=== PATIENT | male | born 1940 | race Caucasian/White ===

== ENCOUNTER 2019-11-26 12:00 | Outpatient (CLI) | payer MEDICARE, OTHER ==
[2019-11-26 14:15] LABS: BILIRUBIN,URINE NEGATIVE (NEGATIVE); GLUCOSE, URINE (UA) NEGATIVE (NEGATIVE); KETONES,URINE (UA) NEGATIVE (NEGATIVE); LEUKOCYTE ESTERASE, URINE SMALL (NEGATIVE); NITRITE,URINE NEGATIVE (NEGATIVE); OCCULT BLOOD,URINE LARGE (NEGATIVE); PROTEIN,URINE TRACE mg/dL (NEGATIVE); UROBILINOGEN,URINE 0.2 (NORMAL) E.U./dL (NORMAL)
[2019-11-26 14:18] LABS: CLARITY,URINE HAZY (CLEAR)
[2019-11-26 14:29] LABS: AMORPHOUS SEDIMENT,UR Moderate /LPF; BACTERIA,URINE Few /HPF (None Seen); SQUAMOUS EPITHELIAL CELL,UR NONE SEEN (<= Few)
== END 2019-11-26 23:59 | disposition home or self-care (01) ==
LOC: LAB.R 12:00
DX: R30.0 Dysuria (principal)
CPT/HCPCS: 81001; 81003; 87077; 87086; 87181

== ENCOUNTER 2019-12-14 08:00 | Outpatient (CLI) | payer MEDICARE ==
[2019-12-14 20:39] LABS: BASOPHILS % (AUTO) 0.2 %; EOSINOPHILS # (AUTO) 0.1 10^3/uL (0.0-0.7); EOSINOPHILS % (AUTO) 0.7 %; HGB - HEMOGLOBIN 12.3 g/dL (14.0-18.0); LYMPHOCYTES % (AUTO) 19.7 %; MEAN CORPUSCULAR HEMOGLOBIN 31.5 pg (27.0-31.0); MEAN CORPUSCULAR HGB CONC 34.4 g/dL (32.0-36.0); MEAN CORPUSCULAR VOLUME 91.6 fL (80.0-94.0); MEAN PLATELET VOLUME 11.5 fL (7.4-11.4); NEUTROPHILS % (AUTO) 68.9 %; PLT - PLATELET COUNT 248 10^3/uL (130-450); RED BLOOD COUNT 3.91 10^6/uL (4.70-6.10); RED CELL DISTRIBUTION WIDTH 13.3 % (12.0-15.0); WHITE BLOOD COUNT 10.2 x10^3/uL (4.8-10.8)
[2019-12-14 20:50] LABS: CALCIUM 8.5 mg/dL (8.5-10.3)
== END 2019-12-14 23:59 | disposition home or self-care (01) ==
LOC: LAB.R 08:00
PROVIDERS: ATTEND Family Medicine
DX: U07.1 COVID-19 (principal); F03.90 Unspecified dementia, unspecified severity, without behavioral disturbance, psychotic disturbance, mood disturbance, and anxiety
CPT/HCPCS: 80048; 85025

== ENCOUNTER 2019-12-24 14:55 | Outpatient (CLI) | payer MEDICARE ==
--- NOTE | 2019-12-25 00:39 | XRAY Report ---
Reason: Displaced fracture of epiphysis (upper) of right femur, subsequent encounter for Procedure Date: 12/24/2019 Accession Number: [id number] / [id number] Procedure: XR - Hip w/Pelvis 2-3V RT CPT Code: Final Report FULL RESULT: EXAM: RIGHT HIP RADIOGRAPHY EXAM DATE: 12/24/2019 03:14 PM. CLINICAL HISTORY: Right femoral fracture COMPARISON: None. TECHNIQUE: 2 views. FINDINGS: The right intertrochanteric femoral fracture is internally fixated by an intramedullary nail and lateral plate with multiple proximal femoral diaphyseal screws. The fracture is mildly impacted with foreshortening. The hips are seated. Mild bilateral hip joint space narrowing with marginal osteophyte are seen. The bones are osteopenic. The remaining bones of the pelvis are intact. A large amount of retained stool is seen in the imaged portions of the colon. There is no focal soft tissue swelling. IMPRESSION: Internally fixated right intertrochanteric femoral fracture. RADIA
== END 2019-12-24 14:56 | disposition home or self-care (01) ==
LOC: DI 14:55
PROVIDERS: ATTEND Family Medicine
DX: S72.141D Displaced intertrochanteric fracture of right femur, subsequent encounter for closed fracture with routine healing (principal)

== ENCOUNTER 2020-01-04 08:00 | Outpatient (CLI) | payer MEDICARE ==
[2020-01-04 18:36] LABS: CALCIUM 8.4 mg/dL (8.5-10.3); CREATININE 0.9 mg/dL (0.6-1.2)
== END 2020-01-04 23:59 | disposition home or self-care (01) ==
LOC: LAB.R 08:00
DX: E87.6 Hypokalemia (principal)
CPT/HCPCS: 80048

== ENCOUNTER 2020-04-11 17:42 | Emergency (ER) | payer MEDICARE ==
[2020-04-11] MEDS ORDERED: LIDOCAINE-EPINEPH-TETRACAINE 3 ML SYRINGE TOP STA (18:54)
--- NOTE | 2020-04-11 18:55 | ED Physician Documentation ---
PD HPI HEAD INJURY - Stated complaint Stated Complaint: GLF/EYE LAC - Chief complaint Chief Complaint: Laceration - History obtained from History obtained from: Patient - History of Present Illness Mechanism of head injury: Fell Where head injury occurred: Home Pain level max: 0 Pain level now: 0 Associated symptoms: AMS (Dementia, no change from baseline) Symptoms worsen with: Palpation Contributing factors: No: Anticoagulated, Intoxicated Recently seen: Not recently seen - Additional information Additional information: Patient lives at home place, has dementia. He fell today. Unwitnessed fall. Found to be bleeding from the right periorbital area. Unknown loss of consciousness. Not on blood thinners. Placed in a cervical collar by EMS and brought in for evaluation. No other apparent injuries. Review of Systems Unable to obtain: Dementia PD PAST MEDICAL HISTORY - Past Medical History Past Medical History: Yes Neuro: Dementia - Past Surgical History Past Surgical History: No - Allergies Allergies/Adverse Reactions: Allergies Allergy/AdvReac Type Severity Reaction Status Date / Time No Known Drug Allergies Allergy Verified 04/11/20 19:12 - Family History Family history: reports: Non contributory PD ED PE NORMAL - Vitals Vital signs reviewed: Yes - General General: No acute distress, Other (alert) - HEENT HEENT: PERRL, EOMI, Moist mucous membranes, Other (laceration R eyebrow, no scalp hematomas) - Neck Neck: Supple, no meningeal sign, No bony TTP - Cardiac Cardiac: RRR, Strong equal pulses - Respiratory Respiratory: No respiratory distress, Clear bilaterally - Abdomen Abdomen: Soft, Non tender, Non distended - Back Back: No spinal TTP - Derm Derm: Warm and dry - Extremities Extremities: No deformity, No tenderness to palpate, Normal ROM s pain - Neuro Neuro: Other (alert, pleasant) - Psych Psych: Normal mood, Normal affect Results - Vitals Vitals: Vital Signs - 24 hr 04/11/20 04/11/20 04/11/20 17:42 19:52 21:00 Temperature 36.4 C L 36.7 C Heart Rate 81 75 75 Respiratory 16 16 14 Rate Blood Pressure 138/77 H 109/90 H 104/66 O2 Saturation 100 100 98 Oxygen O2 Source Room air - Rads (name of study) head CT Radiology: Prelim report reviewed, EMP read contemporaneously, See rad report (no acute findings) c-spine cT Radiology: Prelim report reviewed, EMP read contemporaneously, See rad report (no acute findings) Procedures - Laceration (location) R eyebrow Length in cm: 2 Wound type: Linear, Superficial, Clean Neurovascular status: Sensory intact, Motor intact, Vascular intact Anesthesia: LET Wound Preparation: Irrigated copiously NS Skin layer closure: Dermabond, Steri strips Other: Patient tolerated well, No complications, Neurovascular intact, Dressing applied, Tetanus UTD Complexity: Simple PD MEDICAL DECISION MAKING - ED course Complexity details: reviewed results, considered differential, d/w patient ED course: 80-year-old male with a fall today. Laceration repaired with Steri-Strips and Dermabond. Patient tolerated well. No acute findings on head CT or cervical spine CT. We will have him follow-up with his doctor for further care. This document was made in part using voice recognition software. While efforts are made to proofread this document, sound alike and grammatical errors may occur. Departure - Departure Disposition: 01 Home, Self Care Clinical Impression: Facial laceration Qualifiers: Encounter type: initial encounter Qualified Code(s): S01.81XA - Laceration without foreign body of other part of head, initial encounter Head injury Qualifiers: Encounter type: initial encounter Qualified Code(s): S09.90XA - Unspecified injury of head, initial encounter Condition: Good Instructions: ED Laceration Facial Sutr Tape Follow-Up: Cherelle Roth MD [Primary Care Provider] - Within 1 week Comments: Return if he worsens. Keep the wound covered. The Steri-Strips and Dermabond should fall off on their own after about a week. His CT scan of the head and neck do not show any acute abnormalities tonight. Discharge Date/Time: 04/11/20 21:06
--- NOTE | 2020-04-11 20:16 | CT Report ---
PROCEDURE: HEAD WO INDICATIONS: fall, head injury TECHNIQUE: Noncontrast 4.5 mm thick angled axial sections acquired from the foramen magnum to the vertex. For r adiation dose reduction, the following was used: automated exposure control, adjustment of mA and/or kV according to patient size. COMPARISON: None. FINDINGS: Image quality: Excellent. CSF spaces: Basal cisterns are patent. No extra-axial fluid collections. Ventricles and sulci are m ildly enlarged, compatible with diffuse cerebral and cerebellar volume loss. Brain: No midline shift. No intracranial masses or hemorrhage. Scattered hypodensities in the subco rtical and periventricular white matter are compatible with mild chronic microvascular ischemic mooney es. Skull and face: Calvarium and visualized facial bones are intact, without suspicious lesions. Sinuses: Visualized sinuses and mastoids are clear. IMPRESSION: No acute intracranial hemorrhage or mass effect. No skull fracture is identified. Mild chronic senescent changes including mild chronic microvascular ischemic changes and mild diffuse cerebral atrophy. Reviewed by: Terrell Brown MD on 04/11/2020 8:15 PM PDT Approved by: Terrell Brown MD on 04/11/2020 8:15 PM PDT Station ID: [id number]
--- NOTE | 2020-04-11 20:34 | CT Report ---
PROCEDURE: CERVICAL SPINE WO INDICATIONS: fall, neck injury TECHNIQUE: Noncontrast 3 mm thick sections acquired from the skull base to the T4 level. Sagittal and coronal r eformats were then constructed. For radiation dose reduction, the following was used: automated exp osure control, adjustment of mA and/or kV according to patient size. COMPARISON: None. FINDINGS: Image quality: Images are degraded by patient motion on multiple sequences. Repeat sequences were obt ained.. Bones: No acute osseous fracture is identified. Multilevel degenerative disc disease and facet hyper trophy are seen in the cervical spine. There is mild grade 1 retrolisthesis of C3 on C4 related to de generative disc disease. Cervical alignment is otherwise maintained. Multilevel neuroforaminal narrow ing is seen that is most severe at the C3-4 level on the right. Moderate neural foraminal narrowing i s also seen at the C3-4 level left. No high-grade narrowing of the bony spinal canal is identified. T here is mild spinal canal narrowing at the C3-4 disc space level. Soft tissues: Prevertebral soft tissues are normal in thickness. No paravertebral hematomas. No ap ical pneumothoraces. Atherosclerotic calcifications are seen in the aorta. IMPRESSION: No acute cervical spine fracture is identified. There is no high-grade narrowing of the central spina l canal. Multilevel degenerative disc disease and facet hypertrophy are seen, which are worst at the C3-4 leve l, where there is mild retrolisthesis of C3 on C4 resulting in mild spinal canal stenosis and severe right and moderate left neural foraminal narrowing. Reviewed by: Terrell Brown MD on 04/11/2020 8:32 PM PDT Approved by: Terrell Brown MD on 04/11/2020 8:32 PM PDT Station ID: [id number]
[2020-04-11 21:06] VITALS: BP 104/66
== END 2020-04-11 21:06 | disposition home or self-care (01) ==
LOC: EDUNIT# → ED 17:42
DX: S01.111A Laceration without foreign body of right eyelid and periocular area, initial encounter (principal); S09.90XA Unspecified injury of head, initial encounter; W18.30XA Fall on same level, unspecified, initial encounter; Y92.129 Unspecified place in nursing home as the place of occurrence of the external cause; M50.31 Other cervical disc degeneration, high cervical region; M48.02 Spinal stenosis, cervical region; F03.90 Unspecified dementia, unspecified severity, without behavioral disturbance, psychotic disturbance, mood disturbance, and anxiety
CPT/HCPCS: 12011; 70450; 72125; 99281; 99284

== ENCOUNTER 2020-11-23 06:49 | Outpatient (CLI) | payer MEDICARE | END 2020-11-23 06:50 | disposition critical access hospital (66) | LOC: EMS 06:49 | PROVIDERS: ATTEND Emergency Medicine | DX: R41.82 Altered mental status, unspecified (principal); R06.82 Tachypnea, not elsewhere classified | CPT/HCPCS: A0425; A0427 ==

== ENCOUNTER 2020-11-23 07:05 | Inpatient (IN) | payer MEDICARE ==
[2020-11-23] MEDS ORDERED: MEROPENEM 1 GM in SODIUM CHLORIDE 0.9% MINIBAG 100 ML IV STA ×2 (07:19→07:22)
[2020-11-23] MEDS ORDERED: ACETAMINOPHEN 650 MG SUPP PR STA (07:25)
[2020-11-23] MEDS ORDERED: LACTATED RINGERS 2,200 ML IV STA (07:25)
[2020-11-23 07:33] LABS: BASOPHILS % (AUTO) 0.2 %; EOSINOPHILS # (AUTO) 0.1 10^3/uL (0.0-0.7); EOSINOPHILS % (AUTO) 0.5 %; HCT - HEMATOCRIT 39.5 % (42.0-52.0); HGB - HEMOGLOBIN 13.2 g/dL (14.0-18.0); LYMPHOCYTES # (AUTO) 0.6 10^3/uL (1.5-3.5); LYMPHOCYTES % (AUTO) 3.6 %; MEAN CORPUSCULAR HEMOGLOBIN 31.7 pg (27.0-31.0); MEAN CORPUSCULAR HGB CONC 33.4 g/dL (32.0-36.0); MEAN CORPUSCULAR VOLUME 94.7 fL (80.0-94.0); MEAN PLATELET VOLUME 9.8 fL (7.4-11.4); MONOCYTES # (AUTO) 0.5 10^3/uL (0.0-1.0); NEUTROPHILS # (AUTO) 14.9 10^3/uL (1.5-6.6); NEUTROPHILS % (AUTO) 91.6 %; PLT - PLATELET COUNT 186 10^3/uL (130-450); RED BLOOD COUNT 4.17 10^6/uL (4.70-6.10); RED CELL DISTRIBUTION WIDTH 13.1 % (12.0-15.0); WHITE BLOOD COUNT 16.2 x10^3/uL (4.8-10.8)
[2020-11-23 07:40] LABS: BILIRUBIN,URINE NEGATIVE (NEGATIVE); GLUCOSE, URINE (UA) NEGATIVE (NEGATIVE); KETONES,URINE (UA) TRACE mg/dL (NEGATIVE); LEUKOCYTE ESTERASE, URINE LARGE (NEGATIVE); NITRITE,URINE NEGATIVE (NEGATIVE); OCCULT BLOOD,URINE LARGE (NEGATIVE); PH,URINE 8.5 PH (5.0-7.5); PROTEIN,URINE 100 mg/dL (NEGATIVE); UROBILINOGEN,URINE 0.2 (NORMAL) E.U./dL (NORMAL)
[2020-11-23 07:41] LABS: CLARITY,URINE CLOUDY (CLEAR)
[2020-11-23 07:45] LABS: ALBUMIN 3.1 g/dL (3.2-5.5); CALCIUM 8.4 mg/dL (8.5-10.3); CREATININE 4.2 mg/dL (0.6-1.2); POTASSIUM 4.2 mmol/L (3.5-5.0); TOTAL PROTEIN 6.2 g/dL (6.7-8.2); VBG PCO2 30.6 mmHg (41-51); VBG PH 7.334 (7.31-7.41); VBG PO2 23.4 mmHg (25-47)
--- NOTE | 2020-11-23 07:45 | XRAY Report ---
PROCEDURE: Chest 1 View X-Ray INDICATIONS: sepsis TECHNIQUE: One view of the chest was acquired. COMPARISON: None FINDINGS: Surgical changes and devices: None. Lungs and pleura: On the semiupright images, no large pneumothorax or large pleural effusions can be seen. No focal infiltrates are seen. Mediastinum: The aorta is prominent and tortuous. The cardiac contours are within normal limits. Bones and chest wall: Age-appropriate degenerative changes are seen. No suspicious bony lesions. Overlying soft tissues appear unremarkable. IMPRESSION: No focal infiltrates are seen. Reviewed by: Tyler Harman MD on 11/23/2020 6:44 AM JOMAR Approved by: Tyler Harman MD on 11/23/2020 6:44 AM JOMAR Station ID: [id number]
[2020-11-23 07:46] LABS: VBG BASE EXCESS -8.5 mmol/L (-2 - +2); VBG OXYGEN SATURATION 38.2 % (60-80)
--- NOTE | 2020-11-23 07:47 | ED Physician Documentation ---
History of Present Illness - Stated complaint Stated Complaint: AMS - Chief complaint Chief Complaint: Fever - History obtained from History obtained from: EMS - Additonal information Additional information: 80yM with pmh baseline severe dementia, BPH with chronic indwelling sims, p/w unresponsiveness around 4am on morning checks. LSN was last night. On ems arrival he was tachycardic, hypotensive, normal blood glucose. 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 patient initially responsive only to pain, moaning, eyes closed. In the ED he is responsive to verbal, eye opening spontaneously, moaning. Further history limited by patient acuity. Review of Systems Unable to obtain: Dementia, Other (ROS limited by patient acuity) PD PAST MEDICAL HISTORY - Past Medical History Neuro: Dementia - Past Surgical History Past Surgical History: No - Present Medications Home Medications: Ambulatory Orders Medication Instructions Recorded Confirmed Acetaminophen [Tylenol] 650 mg PO Q6H PRN 11/23/20 11/23/20 Bisacodyl Supp [Dulcolax Supp] 1 supp TX DAILY PRN 11/23/20 11/23/20 Cholecalciferol [Vitamin D3] 1 tab PO DAILY 11/23/20 11/23/20 Loperamide HCl [Imodium A-D] 4 mg PO PRN PRN 11/23/20 11/23/20 Mag Hydrox/Aluminum Hyd/Simeth 30 ml PO Q4HR PRN 11/23/20 11/23/20 [Antacid Anti-Gas Liquid] Magnesium Hydroxide [Milk of 30 ml PO DAILY PRN 11/23/20 11/23/20 Magnesia] Propranolol ER [Inderal LA] 1 tab PO DAILY 11/23/20 11/23/20 - Allergies Allergies/Adverse Reactions: Allergies Allergy/AdvReac Type Severity Reaction Status Date / Time No Known Drug Allergies Allergy Verified 11/23/20 07:23 PD ED PE NORMAL - Vitals Vital signs reviewed: Yes - General General: Other (alert, eye opening spontaneously, visibly tachypneic) - HEENT HEENT: Atraumatic, PERRL, EOMI, Other (dry MM) - Neck Neck: Supple, no meningeal sign - Cardiac Cardiac: Other (tachycardic rate, reg rhythm) - Respiratory Respiratory: No respiratory distress, Clear bilaterally - Abdomen Abdomen: Other (discomfort to suprapubic palpation with distended palpable bladder. otherwise ntnd) - Male Male : Other (sims in place) - Derm Derm: Other (flushed) - Extremities Extremities: No deformity - Neuro Eye Opening: Spontaneous Motor: Localizes to Pain Verbal: Inappropriate GCS Score: 12 - Psych Psych: Other (confused, disoriented) Results - Vitals Vitals: Vital Signs - 24 hr 11/23/20 11/23/20 11/23/20 07:23 07:33 07:48 Temperature 38.5 C H 38.5 C H 38 C H Heart Rate 103 H 94 94 Respiratory 36 H 38 H 42 H Rate Blood Pressure 87/57 L 74/51 L 84/58 L O2 Saturation 96 95 97 11/23/20 11/23/20 11/23/20 08:13 08:34 08:42 Temperature 37.6 C 37.7 C 37.7 C Heart Rate 100 91 92 Respiratory 31 H 32 H 28 H Rate Blood Pressure 85/53 L 76/46 L 77/53 L O2 Saturation 96 96 97 11/23/20 11/23/20 11/23/20 08:55 09:02 09:20 Temperature 37.7 C 37.7 C 37.6 C Heart Rate 93 93 89 Respiratory 28 H 29 H 32 H Rate Blood Pressure 68/48 L 69/47 L 76/50 L O2 Saturation 94 95 98 Oxygen O2 Source Non-rebreather mask - EKG (time done) 0716 Rate: Rate (enter#) (101) Rhythm: Sinus tachycardia Intervals: Normal TX Ischemia: ST elevation c/w repol (lateral leads) - Labs Labs: Laboratory Tests 11/23/20 11/23/20 11/23/20 07:19 07:19 07:19 WBC 16.2 H RBC 4.17 L Hgb 13.2 L Hct 39.5 L MCV 94.7 H MCH 31.7 H MCHC 33.4 RDW 13.1 Plt Count 186 MPV 9.8 Neut # (Auto) 14.9 H Lymph # (Auto) 0.6 L Hernando # (Auto) 0.5 Eos # (Auto) 0.1 Baso # (Auto) 0.0 Absolute Nucleated RBC 0.00 Nucleated RBC % 0.0 VBG pH VBG pCO2 VBG pO2 VBG HCO3 VBG Total CO2 VBG O2 Saturation VBG Base Excess Sodium 145 Potassium 4.2 Chloride 114 H Carbon Dioxide 18 L Anion Gap 13.0 BUN 60 H Creatinine 4.2 H Estimated GFR (MDRD) 14 L Glucose 102 H Lactic Acid 5.3 H* Calcium 8.4 L Total Bilirubin 1.0 AST 30 ALT 18 Alkaline Phosphatase 66 Total Protein 6.2 L Albumin 3.1 L Globulin 3.1 Albumin/Globulin Ratio 1.0 Urine Color Urine Clarity Urine pH Ur Specific Stephenson Urine Protein Urine Glucose (UA) Urine Ketones Urine Occult Blood Urine Nitrite Urine Bilirubin Urine Urobilinogen Ur Leukocyte Esterase Urine RBC Urine WBC Ur Squamous Epith Cells Urine Bacteria Urine Culture Comments 11/23/20 11/23/20 07:19 07:19 WBC RBC Hgb Hct MCV MCH MCHC RDW Plt Count MPV Neut # (Auto) Lymph # (Auto) Hernando # (Auto) Eos # (Auto) Baso # (Auto) Absolute Nucleated RBC Nucleated RBC % VBG pH 7.334 VBG pCO2 30.6 L VBG pO2 23.4 L VBG HCO3 16.0 L VBG Total CO2 17.0 L VBG O2 Saturation 38.2 L VBG Base Excess -8.5 L Sodium Potassium Chloride Carbon Dioxide Anion Gap BUN Creatinine Estimated GFR (MDRD) Glucose Lactic Acid Calcium Total Bilirubin AST ALT Alkaline Phosphatase Total Protein Albumin Globulin Albumin/Globulin Ratio Urine Color BROWN Urine Clarity CLOUDY Urine pH 8.5 H Ur Specific Stephenson 1.015 Urine Protein 100 H Urine Glucose (UA) NEGATIVE Urine Ketones TRACE Urine Occult Blood LARGE H Urine Nitrite NEGATIVE Urine Bilirubin NEGATIVE Urine Urobilinogen 0.2 (NORMAL) Ur Leukocyte Esterase LARGE H Urine RBC 11-25 H Urine WBC >25 H Ur Squamous Epith Cells NONE SEEN Urine Bacteria Many H Urine Culture Comments INDICATED PD MEDICAL DECISION MAKING - ED course ED course: 80-year-old man, DNR/DNI comfort measures only + antibiotics, presented from [facility] with Sims malfunction, not draining overnight and after it was changed out 900 cc of dark cloudy blood-tinged fluid out within 15 minutes. He is in septic shock on arrival, has had 1500 cc of IV fluids thus far and has had improvement in his heart rate and blood pressure with MAP of 65 and 68 on my reexamination after initial volume resuscitation. Meropenem ordered in anticipation of etiology. will d/w family re: goals of care. 7:45am Left a message to patient's child for callback. 8:30am d/w daughter who is amenable to admission for antibiotics and would like to confirm polst of dnr/dni with comfort measures, OK to give antibiotics, peripheral pressors for a short time period only. no invasive procedures, e.g., central line. 9am - HR now normalized, patient is less tachypneic. BP continues to downtrend therefore we will start peripheral pressors. CRITICAL CARE NOTE: I have personally performed a history, physical exam, and my own medical decision making. Upon my evaluation, this patient had a high probability of imminent or life- threatening deterioration due to SEPTIC SHOCK, which required my direct attention, intervention, and personal management. I have personally provided 30 minutes of critical care time exclusive of time spent on separately billable procedures. Time includes review of laboratory data, radiology results, discussion with consultants, and monitoring for potential decompensation. Interventions were performed as documented. EDW 9:01am 11/23/20 Departure - Departure Disposition: 66 [facility] DC/Xfer Clinical Impression: Septic shock, UTI (urinary tract infection), ERICKA (acute kidney injury)
[2020-11-23 07:53] LABS: BACTERIA,URINE Many /HPF (None Seen); SQUAMOUS EPITHELIAL CELL,UR NONE SEEN (<= Few); WBC,URINE >25 /HPF (0-3)
[2020-11-23 07:55] LABS: LACTIC ACID, VENOUS 5.3 mmol/L (0.5-2.2)
--- NOTE | 2020-11-23 08:34 | CT Report ---
PROCEDURE: Abdomen/Pelvis WO INDICATIONS: sepsis, abdominal tenderness suprapubic TECHNIQUE: Noncontrast 5 mm thick sections acquired from the diaphragms to the symphysis. 5 mm coronal and sagi ttal reformats were then performed. For radiation dose reduction, the following was used: automated exposure control, adjustment of mA and/or kV according to patient size. COMPARISON: Correlation is made with the accompanying chest radiograph. FINDINGS: Image quality: There is artifact associated with the metallic hardware. The study is also limited by motion artifact. ABDOMEN: Lung bases: There is mild dependent atelectasis. Heart size is normal. Solid organs: Liver and spleen are normal in size. Gallbladder wall does not appear thickened. P ancreas is normal in contours. No adrenal nodules. Kidneys are normal in size, without hydronephros is or nephrolithiasis. Peritoneum and bowel: There is a moderate amount of stool seen within the distal colon. Unenhanced b owel loops demonstrate normal wall thickness and caliber. No free fluid or air. Nodes and vessels: No retroperitoneal or mesenteric adenopathy by size criteria. Aorta and inferior vena cava are normal in caliber. Atherosclerotic calcification is seen. Miscellaneous: No ventral hernias. PELVIS: Genitourinary: The bladder is decompressed by the presence of a Benson catheter. Miscellaneous: No inguinal adenopathy. Bilateral fat-containing inguinal hernias are seen, left larg er than right. Bones: Proximal right femur hardware is partially seen. No suspicious bony lesions. There is a remot e appearing central compression deformity seen of L3, with 70% loss of height centrally. Grade 1/2 L5 -S1 anterolisthesis is seen, with associated L5 pars defects. Focal L5-S1 degenerative change is seen . Mild to moderate levoconvex scoliotic curvature is seen. IMPRESSION: Ramiro cause of sepsis is not identified on this study. A moderate amount of stool is seen within the distal colon. Please consider constipation. A Benson catheter is seen. Bilateral inguinal hernias are seen which contain fat and are larger on the right side than on the le ft. Incidental note is made of: Proximal right femur hardware Remote central compression deformity at L3 L5 pars defects, with grade 1 anterolisthesis at L5-S1 and focal degenerative change Benson catheter Levoconvex scoliosis Reviewed by: Tyler Harman MD on 11/23/2020 7:32 AM JOMAR Approved by: Tyler Harman MD on 11/23/2020 7:32 AM JOMAR Station ID: [id number]
[2020-11-23] MEDS ORDERED: SODIUM CHLORIDE 0.9% 1,000 ML IV STA (09:17)
[2020-11-23 09:36] LABS: B. PARAPERTUSSIS- RESP PCR PAN NOT DETECTED; B. PERTUSSIS- RESP PCR PANEL NOT DETECTED; C. PNEUMONIAE- RESP PCR PANEL NOT DETECTED; CORONAVIRUS 229E-RESP PCR NOT DETECTED; CORONAVIRUS HKU1-RESP PCR NOT DETECTED; CORONAVIRUS NL63-RESP PCR NOT DETECTED; CORONAVIRUS OC43-RESP PCR NOT DETECTED; HUMAN METAPNEUMOVIRUS NOT DETECTED; INFLUENZA A- RESP PCR PANEL NOT DETECTED; INFLUENZA B - RESP PCR PANEL NOT DETECTED; M. PNEUMONIAE- RESP PCR PANEL NOT DETECTED; PARAINFLUENZA VIRUS 1 NOT DETECTED; PARAINFLUENZA VIRUS 2 NOT DETECTED; PARAINFLUENZA VIRUS 3 NOT DETECTED; PARAINFLUENZA VIRUS 4 NOT DETECTED; RHINOVIRUS/ENTEROVIRUS NOT DETECTED; RSV- RESP PCR PANEL NOT DETECTED; SARS-CoV-2 -RESP PCR PANEL NOT DETECTED
[2020-11-23] MEDS ORDERED: ONDANSETRON 4 MG/2 ML VIAL IVP PRN (10:14)
[2020-11-23 10:37] LABS: INR 1.6 (0.8-1.2); PT - PROTHROMBIN TIME 17.5 secs (9.9-12.6)
[2020-11-23] MEDS: PANTOPRAZOLE 40 MG VIAL IVP SCH (10:56)
[2020-11-23] MEDS ORDERED: LACTATED RINGERS 1,000 ML IV SCH (11:00)
--- NOTE | 2020-11-23 14:22 | HISTORY & PHYSICAL EXAMINATION ---
DATE OF SERVICE: 11/23/2020 Physician: Shellie Allison MD HISTORY OF PRESENT ILLNESS: This is an 80-year-old white male who lives at [facility]. The entire history was obtained from chart review because he has dementia and is currently in septic shock and also does not communicating. There is a history of dementia, chronic Benson, enlarged prostate, urinary retention, hypertension, tremor, and prior recurrent falls. He has a Urologist, Dr. Sharpe. There was Home Health note entered in 07/2020 with a plan for monthly Benson catheter changes. The other records indicate that he has a POLST form, indicating he is DNR, DNI. He needs to be fed, he does not communicate, and comfort is the goal for care, but antibiotics are allowed. The patient was brought to the emergency room, found by staff at [facility] to be less alert with altered mental status and also noted no urine output in his Benson bag for about 1 day. At the scene with brake repair mechanic his blood pressure was in the 60s, they gave 1 liter of fluids, which improved the systolic blood pressure to 78. In the ER, he was found to have continued hypotension with blood pressure 85/53, heart rate 100, he had a low-grade temperature of 37.6C, white blood count elevated at 16, lactic acid very elevated at 5, and the urinary bladder was blocked and the Benson was changed, which resulted in 900 mL urine output in the ER. His labs also showed ERICKA with a BUN/creatinine of 64/4.2 (his baseline creatinine is 0.9). The patient required aggressive crystalloid resuscitation per the sepsis protocol and had urine and blood cultures done and he was started on iv Meropenem empirically for a urinary tract infection. The emergency room doctor spoke to a daughter, who okayed the use of antibiotics and also Levophed for blood pressure support, but did not want central line placement. The patient is being admitted to the ICU in septic shock from a urinary source. PAST MEDICAL HISTORY: Dementia, not communicative, BPH, chronic indwelling Benson, prior history of hypertension, tremor, low back pain, and "RTHA" (per the Home Health nurse note). ALLERGIES: NONE. MEDICATIONS 1. Tylenol p.r.n. 2. Dulcolax suppository p.r.n. 3. Vitamin D3 25 mcg daily. 4. Imodium p.r.n. 5. Antacid p.r.n. 6. Milk of magnesia p.r.n. 7. Potassium chloride 10 mEq, unknown frequency. 8. Inderal LA 60 mg, unknown frequency. REVIEW OF SYSTEMS: A comprehensive review of systems was done from EMR review, because the patient is not communicative, and the pertinent positives are listed, the rest are negative. FAMILY HISTORY: Noncontributory. SOCIAL HISTORY: He is a nonsmoker, drinks no alcohol, and no drug use history. He lives at [facility]. He has nurses for several hours during the day for his [facility] needs. PHYSICAL EXAMINATION GENERAL: Elderly white male. He is currently sleeping, but awakens and follows the conversation with his eyes, then falls back asleep. His skin is warm and dry. VITAL SIGNS: Blood pressure is currently 78/43 with a MAP of 63. Heart rate 96 in sinus rhythm, respiratory rate 30, saturation 88% on 7 liters and increased to 94% on the 7 liters eventually. HEENT: Well developed elederly male in no distress, has dry oral mucosa, wearing a vent-mask and currently his eyes are closed. NECK: No JVD in a 30-degree upright angle. CHEST: Clear anteriorly. HEART: Heart sounds are distant. No murmurs are heard. ABDOMEN: Soft, nontender. Diminished bowel sounds. No guarding or rebound. EXTREMITIES: No clubbing, cyanosis, or edema. The skin has mild tenting on the arms and legs. NEUROLOGIC: Obtunded, awakens and follows the conversation with his eyes, he does not communicate. Movement has been seen of the right arm. LABORATORY/DATA White blood count 16.2, hemoglobin 13.2, and platelet count 186. INR 1.6. Sodium 145, potassium 4.2, chloride 114, CO2 18, BUN 60, and creatinine 4.1 (baseline creatinine 0.9). Lactic acid 5.3, and on repeat 2 hours later it was 7.2. Normal liver tests. Troponin 23, no lipase was done. Venous blood gas had a pH of 7.33. Urinalysis had a pH of 8.5, specific gravity 1.015, protein high, occult blood large, leukocyte esterase, high, many RBCs and WBCs with no squamous cells and many bacteria seen. His [employer] test was negative for COVID and for everything else. Chest x-ray: No focal infiltrates are seen, heart size is normal. Abdomen and pelvis CT showed: The bladder was decompressed with a Benson in place, there is a proximal right femur hardware seen. There is a compression deformity of L3 and other degenerative changes in the lumbar spine. There is stool in the distal colon, there are bilateral inguinal hernias, right greater than left. There was normal appearance of the kidneys without hydronephrosis or nephrolithiasis. EKG: Sinus tachycardia, rate of 101, low voltage in the limb leads, early repolarization. IMPRESSION/DIAGNOSES 1. Septic shock. 2. Sepsis from urinary tract infection. 3. Chronic indwelling Benson. 4. Acute kidney injury. 5. Altered mental status/ obtundation. 6. Dementia. 7. Benign prostatic hypertrophy. 8. Elevated INR, which is possibly related to dietary deficiencies. 9. History of low back pain with evidence of degenerative spine changes on imaging. PLAN: Admit the patient to the ICU, on telemetry. Continue with peripheral IV lines only, he has two 18-gauge large bore IVs currently. Continue with Levophed for blood pressure support, weaning down to off as tolerated, to keep the mean arterial pressure greater than 59mmHg. Await the urine and blood cultures. Follow his lactic acid until there is normalization and until then aggressive crystalloid treatment is indicated. Continue with empiric antibiotic, iv Meropenem was started and will continue this at 1 gram IV every 8 hours. When he awakens, will offer a diet starting with clear liquids and advancing as tolerated. His blood pressure medicine of propranolol LA will be on hold because of the shock. Other supplements will be resumed when he can swallow. Continue with supplemental oxygen, weaning to off as tolerated. Chest x-ray may need to be rechecked since he may have pneumonia that blossoms with rehydration, to explain the hypoxemia. Follow his BUN and creatinine daily, avoid nephrotoxins. Continue with the new Benson for bladder drainage, irrigate if needed since it was blocked, causing this trouble. Continue with the wishes of the family for no invasive or aggressive treatment such as transfer for higher level of care. He is in critical condition. CODE STATUS: DO NOT RESUSCITATE (DNR). DEEP VENOUS THROMBOSIS PROPHYLAXIS: SCDs. ATTESTATION: Patient is expected to be discharged or transferred to another facility within 96 hours: Yes. cc: Cherelle Rtoh MD TD: 11/23/2020 13:10 j MIGUEL
[2020-11-23] MEDS: LACTATED RINGERS 1,000 ML IV SCH (16:45)
[2020-11-23] MEDS: MEROPENEM 1 GM in SODIUM CHLORIDE 0.9% MINIBAG 100 ML IV SCH (16:55)
[2020-11-23] MEDS: SODIUM CHLORIDE FLUSH 0.9% 10 ML SYRINGE IVP SCH (16:59)
--- NOTE | 2020-11-23 17:16 | XRAY Report ---
PROCEDURE: Chest 1 View X-Ray INDICATIONS: Poss CHF TECHNIQUE: One view of the chest was acquired. COMPARISON: Earlier in the day on 11/23/2020 FINDINGS: Surgical changes and devices: None. Lungs and pleura: No pleural effusions or pneumothorax. Lungs are clear without wes interstitial prominence. Mediastinum: The aorta is prominent and tortuous. The cardiac contours are within normal limits. Bones and chest wall: No suspicious bony lesions. Age-appropriate degenerative changes are seen. O verlying soft tissues appear unremarkable. IMPRESSION: No significant interstitial abnormality can be seen. No cardiomegaly can be seen. Please consider short-term follow-up. Reviewed by: Tyler Harman MD on 11/23/2020 4:15 PM JOMAR Approved by: Tyler Harman MD on 11/23/2020 4:15 PM AKFARZANA Station ID: [id number]
[2020-11-23] MEDS: ACETAMINOPHEN 1,000 MG/100 ML 100 ML IV PRN (18:00)
[2020-11-23] MEDS ORDERED: VANCOMYCIN INJ 1.25 GM in SODIUM CHLORIDE 0.9% 250 ML IV ONE (20:00)
[2020-11-23 21:08] LABS: CREATININE 2.5 mg/dL (0.6-1.2); MAGNESIUM 1.8 mg/dL (1.7-2.8); POTASSIUM 3.8 mmol/L (3.5-5.0)
[2020-11-24] MEDS: SODIUM CHLORIDE FLUSH 0.9% 10 ML SYRINGE IVP SCH ×3 (01:43→16:43)
[2020-11-24] MEDS: ACETAMINOPHEN 1,000 MG/100 ML 100 ML IV PRN ×3 (03:48→19:56)
[2020-11-24] MEDS: LACTATED RINGERS 1,000 ML IV SCH ×2 (04:44→16:38)
[2020-11-24] MEDS: MEROPENEM 1 GM in SODIUM CHLORIDE 0.9% MINIBAG 100 ML IV SCH ×2 (04:45→16:39)
[2020-11-24 05:36] LABS: BASOPHILS # (AUTO) 0.1 10^3/uL (0.0-0.1); BASOPHILS % (AUTO) 0.3 %; EOSINOPHILS # (AUTO) 5.1 10^3/uL (0.0-0.7); EOSINOPHILS % (AUTO) 23.7 %; HCT - HEMATOCRIT 31.9 % (42.0-52.0); LYMPHOCYTES # (AUTO) 1.7 10^3/uL (1.5-3.5); LYMPHOCYTES % (AUTO) 7.9 %; MEAN CORPUSCULAR HEMOGLOBIN 32.4 pg (27.0-31.0); MEAN CORPUSCULAR HGB CONC 34.5 g/dL (32.0-36.0); MEAN CORPUSCULAR VOLUME 93.8 fL (80.0-94.0); MEAN PLATELET VOLUME 10.3 fL (7.4-11.4); MONOCYTES # (AUTO) 1.3 10^3/uL (0.0-1.0); MONOCYTES % (AUTO) 5.9 %; NEUTROPHILS # (AUTO) 12.1 10^3/uL (1.5-6.6); NEUTROPHILS % (AUTO) 56.6 %; PLT - PLATELET COUNT 113 10^3/uL (130-450); RED CELL DISTRIBUTION WIDTH 13.3 % (12.0-15.0); WHITE BLOOD COUNT 21.4 x10^3/uL (4.8-10.8)
[2020-11-24 05:48] LABS: CALCIUM 7.5 mg/dL (8.5-10.3); CREATININE 1.9 mg/dL (0.6-1.2); MAGNESIUM 1.8 mg/dL (1.7-2.8); PHOSPHORUS 3.2 mg/dL (2.5-4.6); POTASSIUM 3.4 mmol/L (3.5-5.0)
[2020-11-24] MEDS: PANTOPRAZOLE 40 MG VIAL IVP SCH (06:27)
[2020-11-24] MEDS: POTASSIUM CHLOR 10 MEQ/100 ML 10 MEQ/100 ML BAG IV SCH ×4 (06:27→10:07)
--- NOTE | 2020-11-24 08:34 | XRAY Report ---
PROCEDURE: Chest 1 View X-Ray INDICATIONS: F/U ? CHF TECHNIQUE: One view of the chest was acquired. COMPARISON: 11/23/2020 FINDINGS: Surgical changes and devices: None. Lungs and pleura: No pleural effusions or pneumothorax. Lungs demonstrate less interstitial thicken ing compared to the prior study. This is very minimal previously. Partial clearance of small previous ly seen bibasilar opacities. Mediastinum: Slightly less cephalization of central vasculature. Prominent central pulmonary arteries suggesting chronic pulmonary artery hypertension.. Heart size is normal. Bones and chest wall: No suspicious bony lesions. Degenerative changes in both shoulders and deform ity of remote right clavicle fracture. Overlying soft tissues appear unremarkable. IMPRESSION: 1. No overt findings of CHF. 2. Slight improvement of previously seen very subtle interstitial thickening previously present and l ess cephalization of central vasculature. 3. Prominent central pulmonary arteries. Correlate with history of COPD. Reviewed by: Ramona Keita MD on 11/24/2020 8:33 AM PDT Approved by: Ramona Keita MD on 11/24/2020 8:33 AM PDT Station ID: [id number]
--- NOTE | 2020-11-24 10:19 | PROVIDER PROGRESS NOTE ---
Assessment/Plan - Problem List (1) Gram-negative bacteremia Assessment/Plan: The WBC has risen from 16>> 21 this morning. The blood culture quickly turned pos for GN bacilli. Today the PCR has identified it as Proteus. Therefore the UTI will likely be from this. Await sensitivities. Continue IV Meropenam for now. (2) Bacterial infection due to Proteus mirabilis Assessment/Plan: as above (3) Sepsis due to gram-negative UTI Assessment/Plan: The WBC has increased from 16 to 21 today. Empiric IV meropenam continues until the bacteria is identified and sens available (4) ERICKA (acute kidney injury) Assessment/Plan: He had no urine output into the Benson bag for a day, per his Correction staff. It appears to have been due to obstruction and the Benson was changed out here. The CT abd/pelvis showed no pyelo, hydronephrosis or stones. The BUN/creat has already improved alot since admission from 60/4.2>> 55/2.5>> 49/1.9 today. IV fluids continue. Will start oral hydration and diet today. Avoid nephrotoxins. Follow BMP daily. (5) Chronic indwelling Benson catheter Assessment/Plan: His Benson was "blocked for a day" with no urine output noted at his Correction satff. The Benson was replaced in the ER yesterday. Bloody urine is becoming clear. Irrigate prn has been ordered here. (6) BPH (benign prostatic hyperplasia) Assessment/Plan: Will resume any BPH meds when reconciled (7) Dementia Assessment/Plan: He normally was able to walk with a walker, spoke 1-word sentences, ate well, fed himself but with trouble due to essential tremor, and recognized family who were allowed to "door visit" at [facility]. Here, he is able to follow conversation with his eyes, facial features show that he recognizes his , and he was following her commands. PT to start today. OOB to chair to start today. (8) Elevated INR Assessment/Plan: His admission INR was 1.6, in a pt not on Coumadin, not in DIC. This was likely from inadequate diet. Will start a diet today. Will recheck INR tomorrow with morning labs. (9) Essential tremor Assessment/Plan: He was on Propranolol LA for this. The tremor is minimal. Will hold off on resuming Propranolol, until BP is no longer "soft", since Levophed was just weanrd to off. (10) History of low back pain Assessment/Plan: OOB to chair to start today (11) Hypoxia Assessment/Plan: Resolved. The CXR was repeated last night and this morning, due to cough and hypoxia. It continues to show no CHF and no infiltrates. The supplemental O2 has been weaned to off, he is saturating well on room air, ever since upper airway was suctioned. (12) Septic shock Assessment/Plan: Resolved. Levophed was weaned doen to off. IV fluids continue. Antibiotics continue. He will be moved out of the ICU later today. - Current Meds Current Meds: Current Medications Generic Name Dose Route Start Last Admin Trade Name Freq PRN Reason Stop Dose Admin Norepinephrine Bitartrate 8 mg 250 mls @ 15 mls/hr 11/23/20 11:00 11/24/20 07:05 / Dextrose IV 0 mcg/min .[id number] PHILLIP 0 mls/hr Titration Protocol 8 MCG/MIN Meropenem 1 gm/ Sodium 100 mls @ 200 mls/hr 11/23/20 17:00 11/24/20 05:19 Chloride IV Infused Q12H PHILLIP Infusion Lactated Ringer's 1,000 mls @ 100 mls/hr 11/23/20 14:50 11/24/20 10:00 Lr IV 100 mls/hr .Q10H PHILLIP Infusion Acetaminophen 100 mls @ 400 mls/hr 11/23/20 17:10 11/24/20 04:05 Ofirmev IV Infused Q6HR PRN Infusion Pain or Fever > 38C (100.4F) Potassium Chloride 10 meq in 100 mls @ 100 mls/hr 11/24/20 07:00 11/24/20 10:07 Potassium Chloride IV 11/24/20 10:59 100 mls/hr Q1H PHILLIP Administration Protocol Pantoprazole Sodium 40 mg 11/23/20 11:00 11/24/20 06:27 Pantoprazole 40 Mg Vial IVP 40 mg QDAC PHILLIP Administration Sodium Chloride 10 ml 11/23/20 17:00 11/24/20 09:13 Sodium Chloride Flush 0.9% 10 Ml Syringe IVP Not Given 0100,0900,1700 PHILLIP - Lab Result Fish Bone Diagrams: 11/24/20 05:15 11/24/20 05:15 - Additional Planning My Orders: My Active Orders 11/23/20 09:28 Code Status [OTHERS] Routine 11/23/20 10:14 Activity Orders [RC] Q2HR Blood Glucose POC [RC] 0000,0600,1200,1800 Daily Weight [RC] 0600 Benson Insertion [RC] QSHIFT IO [RC] Q1HR Initiate Bowel Care Protocol [RC] QSHIFT Initiate ICU Electrolyte Prot. [RC] .protocol Initiate Personal Care Protoco [RC] .protocol Vital Signs [RC] Q1H Ondansetron Inj [Zofran Inj] 4 mg IVP Q6HR PRN Sodium Chloride Flush 0.9% [Normal Saline Flush 0.9%] 10 ml IVP PRN PRN Condition of Patient [OTHERS] Routine DVT Prophylaxis [OTHERS] Routine 11/23/20 10:15 NPO except Meds [DIET] 11/23/20 10:16 Oxygen Therapy [RC] .PRN SCDs [RC] QSHIFT Telemetry- [RC] Q4HR 11/23/20 10:18 Initiate Line Care Protocol [RC] QSHIFT 11/23/20 10:21 Benson Irrigation [Urinary Catheter Flush] [RC] PRN 11/23/20 11:00 Dextrose 5% [D5w] 242 ml NORepinephrine [Levophed] 8 mg IV 8 mcg/min Pantoprazole [Protonix] 40 mg IVP QDAC 11/23/20 14:50 Lactated Ringers [Lr] 1,000 ml IV 100 mls/hr 11/23/20 17:00 Meropenem [Merrem] 1 gm Sodium Chloride 0.9% Minibag [Normal Saline 0.9% Minibag] 100 ml IV Q12H Sodium Chloride Flush 0.9% [Normal Saline Flush 0.9%] 10 ml IVP 0100,0900,1700 11/23/20 17:10 Acetaminophen 1,000 mg/100 ml [Ofirmev] 100 ml IV Q6HR 11/24/20 Evaluate and Treat PT [PT] Routine 11/24/20 07:00 Potassium Chlor 10 Meq/100 ml [Potassium Chloride] 10 meq in 100 ml IV Q1H 11/24/20 08:00 Echo Transthoracic Complete [ECHO] Routine 11/24/20 Lunch Dysphagia Puree Diet [DIET] Subjective - Subjective Patient Reports: Other (Moaning as he pulls himself to right side in bed) Nursing Reports: Other (Had BM overnight) Objective Vital Signs: Vital Signs - 24 hr 11/23/20 11/23/20 11/23/20 10:45 10:59 11:10 Temperature 36.1 C L 36.6 C Heart Rate [ 92 91 Monitoring electrodes] Respiratory 24 24 30 H Rate Blood Pressure 91/57 L 83/53 L [Left Brachial artery] Blood Pressure [Right Brachial artery] O2 Saturation 96 89 L 88 L 11/23/20 11/23/20 11/23/20 12:08 12:40 13:00 Temperature 37.2 C 37.3 C Heart Rate [ 96 91 Monitoring electrodes] Respiratory 30 H 30 H 35 H Rate Blood Pressure 78/43 L 86/55 L [Left Brachial artery] Blood Pressure [Right Brachial artery] O2 Saturation 94 95 96 11/23/20 11/23/20 11/23/20 14:00 15:00 16:00 Temperature 37.4 C 37.5 C 37.6 C Heart Rate [ 87 87 91 Monitoring electrodes] Respiratory 23 25 H 35 H Rate Blood Pressure 91/57 L 97/56 L 98/63 [Left Brachial artery] Blood Pressure [Right Brachial artery] O2 Saturation 97 98 100 11/23/20 11/23/20 11/23/20 17:00 18:00 19:00 Temperature 37.8 C 38 C H Heart Rate [ 90 86 84 Monitoring electrodes] Respiratory 39 H 26 H 21 Rate Blood Pressure 90/59 L 93/51 L 89/59 L [Left Brachial artery] Blood Pressure [Right Brachial artery] O2 Saturation 95 97 96 11/23/20 11/23/20 11/23/20 20:00 21:00 22:00 Temperature 36.9 C Heart Rate [ 94 86 87 Monitoring electrodes] Respiratory 31 H 24 26 H Rate Blood Pressure 86/52 L 104/59 L [Left Brachial artery] Blood Pressure [Right Brachial artery] O2 Saturation 97 100 96 11/23/20 11/24/20 11/24/20 23:00 00:00 01:00 Temperature 36.8 C 36.8 C Heart Rate [ 82 78 80 Monitoring electrodes] Respiratory 23 21 17 Rate Blood Pressure 105/53 L 93/65 104/56 L [Left Brachial artery] Blood Pressure [Right Brachial artery] O2 Saturation 96 96 95 11/24/20 11/24/20 11/24/20 02:00 03:00 04:00 Temperature 36.8 C 36.8 C 37.0 C Heart Rate [ 78 83 88 Monitoring electrodes] Respiratory 19 30 H 24 Rate Blood Pressure 103/61 107/61 [Left Brachial artery] Blood Pressure 112/70 [Right Brachial artery] O2 Saturation 97 96 97 11/24/20 11/24/20 11/24/20 05:00 06:00 07:00 Temperature 36.9 C 36.9 C 36.9 C Heart Rate [ 78 97 88 Monitoring electrodes] Respiratory 18 25 H 33 H Rate Blood Pressure [Left Brachial artery] Blood Pressure 103/72 104/58 L 106/59 L [Right Brachial artery] O2 Saturation 96 97 100 11/24/20 11/24/20 11/24/20 08:00 09:00 10:00 Temperature 37.1 C Heart Rate [ 78 96 88 Monitoring electrodes] Respiratory 22 16 28 H Rate Blood Pressure [Left Brachial artery] Blood Pressure 88/55 L 106/51 L 100/59 L [Right Brachial artery] O2 Saturation 97 96 93 Oxygen O2 Source Room air I&O (Last 24 Hrs): Intake and Output Totals x24h 11/22/20 11/23/20 11/24/20 23:59 23:59 23:59 Intake Total 6212.469 2276.272 Output Total 2380 1250 Balance 3832.469 1026.272 General: Alert HEENT: Mucous membr. moist/pink Neck: Supple, No JVD Neuro: Alert, Disoriented, Other (bilateral arm tremor) Cardiovascular: Regular rate, No murmurs Respiratory: No respiratory distress Abdomen: Soft Extremities: No clubbing, No edema - Results Results: Laboratory Results WBC 21.4 x10^3/uL (4.8-10.8) H 11/24/20 05:15 RBC 3.40 10^6/uL (4.70-6.10) L 11/24/20 05:15 Hgb 11.0 g/dL (14.0-18.0) L 11/24/20 05:15 Hct 31.9 % (42.0-52.0) L 11/24/20 05:15 MCV 93.8 fL (80.0-94.0) 11/24/20 05:15 MCH 32.4 pg (27.0-31.0) H 11/24/20 05:15 MCHC 34.5 g/dL (32.0-36.0) 11/24/20 05:15 RDW 13.3 % (12.0-15.0) 11/24/20 05:15 Plt Count 113 10^3/uL (130-450) L 11/24/20 05:15 MPV 10.3 fL (7.4-11.4) 11/24/20 05:15 Neut # (Auto) 12.1 10^3/uL (1.5-6.6) H 11/24/20 05:15 Lymph # (Auto) 1.7 10^3/uL (1.5-3.5) 11/24/20 05:15 Izard # (Auto) 1.3 10^3/uL (0.0-1.0) H 11/24/20 05:15 Eos # (Auto) 5.1 10^3/uL (0.0-0.7) H 11/24/20 05:15 Baso # (Auto) 0.1 10^3/uL (0.0-0.1) 11/24/20 05:15 Absolute Nucleated RBC 0.00 x10^3/uL 11/24/20 05:15 Nucleated RBC % 0.0 /100WBC 11/24/20 05:15 PT 17.5 secs (9.9-12.6) H 11/23/20 07:17 INR 1.6 (0.8-1.2) H 11/23/20 07:17 VBG pH 7.334 (7.31-7.41) 11/23/20 07:19 VBG pCO2 30.6 mmHg (41-51) L 11/23/20 07:19 VBG pO2 23.4 mmHg (25-47) L 11/23/20 07:19 VBG HCO3 16.0 mmol/L (23-28) L 11/23/20 07:19 VBG Total CO2 17.0 mmol/L (24-29) L 11/23/20 07:19 VBG O2 Saturation 38.2 % (60-80) L 11/23/20 07:19 VBG Base Excess -8.5 mmol/L (-2 - +2) L 11/23/20 07:19 Sodium 142 mmol/L (135-145) 11/24/20 05:15 Potassium 3.4 mmol/L (3.5-5.0) L 11/24/20 05:15 Chloride 114 mmol/L (101-111) H 11/24/20 05:15 Carbon Dioxide 20 mmol/L (21-32) L 11/24/20 05:15 Anion Gap 8.0 (6-13) 11/24/20 05:15 BUN 49 mg/dL (6-20) H 11/24/20 05:15 Creatinine 1.9 mg/dL (0.6-1.2) H 11/24/20 05:15 Estimated GFR (MDRD) 34 (>89) L 11/24/20 05:15 Glucose 96 mg/dL (70-100) 11/24/20 05:15 Lactic Acid 2.5 mmol/L (0.5-2.2) H 11/23/20 20:40 Calcium 7.5 mg/dL (8.5-10.3) L 11/24/20 05:15 Phosphorus 3.2 mg/dL (2.5-4.6) 11/24/20 05:15 Magnesium 1.8 mg/dL (1.7-2.8) 11/24/20 05:15 Total Bilirubin 1.0 mg/dL (0.2-1.0) 11/23/20 07:19 AST 30 IU/L (10-42) 11/23/20 07:19 ALT 18 IU/L (10-60) 11/23/20 07:19 Alkaline Phosphatase 66 IU/L (42-121) 11/23/20 07:19 Troponin I High Sens 55.1 ng/L (2.3-19.7) H* 11/23/20 20:40 B-Natriuretic Peptide 625 pg/mL (5-100) H 11/23/20 17:33 Total Protein 6.2 g/dL (6.7-8.2) L 11/23/20 07:19 Albumin 2.5 g/dL (3.2-5.5) L 11/24/20 05:15 Globulin 3.1 g/dL (2.1-4.2) 11/23/20 07:19 Albumin/Globulin Ratio 1.0 (1.0-2.2) 11/23/20 07:19 Urine Color BROWN 11/23/20 07:19 Urine Clarity CLOUDY (CLEAR) 11/23/20 07:19 Urine pH 8.5 PH (5.0-7.5) H 11/23/20 07:19 Ur Specific [place] 1.015 (1.002-1.030) 11/23/20 07:19 Urine Protein 100 mg/dL (NEGATIVE) H 11/23/20 07:19 Urine Glucose (UA) NEGATIVE mg/dL (NEGATIVE) 11/23/20 07:19 Urine Ketones TRACE mg/dL (NEGATIVE) 11/23/20 07:19 Urine Occult Blood LARGE (NEGATIVE) H 11/23/20 07:19 Urine Nitrite NEGATIVE (NEGATIVE) 11/23/20 07:19 Urine Bilirubin NEGATIVE (NEGATIVE) 11/23/20 07:19 Urine Urobilinogen 0.2 (NORMAL) E.U./dL (NORMAL) 11/23/20 07:19 Ur Leukocyte Esterase LARGE (NEGATIVE) H 11/23/20 07:19 Urine RBC 11-25 /HPF (0-5) H 11/23/20 07:19 Urine WBC >25 /HPF (0-3) H 11/23/20 07:19 Ur Squamous Epith Cells NONE SEEN (<= Few) 11/23/20 07:19 Urine Bacteria Many /HPF (None Seen) H 11/23/20 07:19 Urine Culture Comments INDICATED 11/23/20 07:19 Nasal Adenovirus (PCR) NOT DETECTED 11/23/20 08:35 Nasal B. parapertussis DNA (PCR) NOT DETECTED 11/23/20 08:35 Nasal Coronavir 229E PCR NOT DETECTED 11/23/20 08:35 Nasal Coronavir HKU1 PCR NOT DETECTED 11/23/20 08:35 Nasal Coronavir NL63 PCR NOT DETECTED 11/23/20 08:35 Nasal Coronavir OC43 PCR NOT DETECTED 11/23/20 08:35 Nasal Enterovir/Rhinovir PCR NOT DETECTED 11/23/20 08:35 Nasal Influenza B PCR NOT DETECTED 11/23/20 08:35 Nasal Influenza A PCR NOT DETECTED 11/23/20 08:35 Nasal Parainfluen 1 PCR NOT DETECTED 11/23/20 08:35 Nasal Parainfluen 2 PCR NOT DETECTED 11/23/20 08:35 Nasal Parainfluen 3 PCR NOT DETECTED 11/23/20 08:35 Nasal Parainfluen 4 PCR NOT DETECTED 11/23/20 08:35 Nasal RSV (PCR) NOT DETECTED 11/23/20 08:35 Nasal Screen MRSA (PCR) NEGATIVE (NEGATIVE) 11/23/20 10:42 Nasal B.pertussis DNA PCR NOT DETECTED 11/23/20 08:35 Nasal C.pneumoniae (PCR) NOT DETECTED 11/23/20 08:35 Jimmy Human Metapneumo PCR NOT DETECTED 11/23/20 08:35 Nasal M.pneumoniae (PCR) NOT DETECTED 11/23/20 08:35 Nasal SARS-CoV-2 (PCR) NOT DETECTED 11/23/20 08:35
[2020-11-25] MEDS: SODIUM CHLORIDE FLUSH 0.9% 10 ML SYRINGE IVP SCH ×3 (02:12→16:55)
[2020-11-25] MEDS: ACETAMINOPHEN 1,000 MG/100 ML 100 ML IV PRN ×2 (02:41→16:57)
[2020-11-25] MEDS: LACTATED RINGERS 1,000 ML IV SCH ×4 (04:34→18:04)
[2020-11-25] MEDS: MEROPENEM 1 GM in SODIUM CHLORIDE 0.9% MINIBAG 100 ML IV SCH (04:34)
[2020-11-25 05:29] LABS: BASOPHILS % (AUTO) 0.4 %; EOSINOPHILS % (AUTO) 0.6 %; HCT - HEMATOCRIT 30.7 % (42.0-52.0); HGB - HEMOGLOBIN 10.3 g/dL (14.0-18.0); MEAN CORPUSCULAR HEMOGLOBIN 31.5 pg (27.0-31.0); MEAN CORPUSCULAR HGB CONC 33.6 g/dL (32.0-36.0); MEAN CORPUSCULAR VOLUME 93.9 fL (80.0-94.0); MEAN PLATELET VOLUME 10.8 fL (7.4-11.4); MONOCYTES % (AUTO) 4.1 %; NEUTROPHILS % (AUTO) 81.8 %; PLT - PLATELET COUNT 94 10^3/uL (130-450); RED BLOOD COUNT 3.27 10^6/uL (4.70-6.10); RED CELL DISTRIBUTION WIDTH 13.2 % (12.0-15.0); WHITE BLOOD COUNT 14.1 x10^3/uL (4.8-10.8)
[2020-11-25 05:34] LABS: ABNORMAL LYMPHS % (MANUAL) 0 %
[2020-11-25 05:35] LABS: INR 1.4 (0.8-1.2); PT - PROTHROMBIN TIME 15.2 secs (9.9-12.6)
[2020-11-25 05:38] LABS: CALCIUM 7.7 mg/dL (8.5-10.3); CREATININE 1.2 mg/dL (0.6-1.2); POTASSIUM 3.5 mmol/L (3.5-5.0)
[2020-11-25 05:51] LABS: BAND NEUTROPHILS % (MANUAL) 8 %; LYMPHOCYTES # (MANUAL) 2.1 10^3/uL (1.5-3.5); LYMPHOCYTES % (MANUAL) 15 %; MONOCYTES # (MANUAL) 0.3 10^3/uL (0.0-1.0); NEUTROPHILS # (MANUAL) 11.7 10^3/uL (1.5-6.6); PLATELET ESTIMATE, MANUAL DECREASED (<130,000) (NORMAL); PLATELET MORPHOLOGY NORMAL APPEARANCE (NORMAL); RBC MORPHOLOGY (MULTIPLE) NORMAL APPEARANCE (NORMAL); WBC MORPHOLOGY (MULTIPLE) NORMAL APPEARANCE (NORMAL)
[2020-11-25 05:52] LABS: DIFFERENTIAL COMMENT MANUAL DIFFERENTIAL
[2020-11-25] MEDS: PANTOPRAZOLE 40 MG VIAL IVP SCH (06:27)
--- NOTE | 2020-11-25 11:20 | PROVIDER PROGRESS NOTE ---
Subjective - Prog Note Date Prog Note Date: 11/25/20 Prog Note Time: 11:18 - Subjective Subjective: he is upright in bed. RN is feeding him. He automatically responds to my "good morning" and says it back but beyond that, no meaningful conversation. Will look at me and nod yes or no without rhyme or reason but no sentences. He tries to feed himself but not too sucessfull. describes him as needing a lot of help to walk. Review of [facility] records shows 2 aides and a lap belt will walk him but lots of falls. Current Medications - Current Medications Current Medications: Active Medications Lactated Ringer's (Lr) 1,000 mls @ 100 mls/hr IV .Q10H [facility] Last Admin: 11/25/20 06:53 Dose: Not Given Documented by: Acetaminophen (Ofirmev) 100 mls @ 400 mls/hr IV Q6HR PRN PRN Reason: Pain or Fever > 38C (100.4F) Last Infusion: 11/25/20 03:03 Dose: Infused Documented by: Ceftriaxone Sodium 2 gm/ (Sodium Chloride) 100 mls @ 200 mls/hr IV DAILY [facility] Ondansetron HCl (Ondansetron 4 Mg/2 Ml Vial) 4 mg IVP Q6HR PRN PRN Reason: Nausea / Vomiting Pantoprazole Sodium (Pantoprazole 40 Mg Vial) 40 mg IVP QDAC [facility] Last Admin: 11/25/20 06:27 Dose: 40 mg Documented by: Sodium Chloride (Sodium Chloride Flush 0.9% 10 Ml Syringe) 10 ml IVP 010 0,0900,1700 [facility] Last Admin: 11/25/20 09:00 Dose: Not Given Documented by: Sodium Chloride (Sodium Chloride Flush 0.9% 10 Ml Syringe) 10 ml IVP PRN PRN PRN Reason: NEEDED PER PROVIDER ORDERS Acetaminophen [Tylenol] 650 mg PO Q6H PRN 11/23/20 Bisacodyl Supp [Dulcolax Supp] 1 supp OR DAILY PRN 11/23/20 Cholecalciferol [Vitamin D3] 1 tab PO DAILY 11/23/20 Loperamide HCl [Imodium A-D] 4 mg PO PRN PRN 11/23/20 Mag Hydrox/Aluminum Hyd/Simeth [Antacid Anti-Gas Liquid] 30 ml PO Q4HR PRN 11/23/20 Magnesium Hydroxide [Milk of Magnesia] 30 ml PO DAILY PRN 11/23/20 Potassium Chloride 10 meq PO DAILY 11/23/20 Propranolol HCl 60 mg PO DAILY 11/23/20 Objective - Vital Signs/Intake & Output Reviewed Vital Signs: Yes Vital Signs: Vital Signs x48h Temp Pulse Resp BP Pulse Ox 11/25/20 08:27 37.2 C 74 18 141/77 H 99 11/25/20 04:35 37.5 C 87 24 119/57 L 94 Intake & Output: Intake & Output 11/22/20 11/23/20 11/24/20 11/25/20 23:59 23:59 23:59 23:59 Intake Total 6212.469 3759.605 1200 Output Total 2380 2210 850 Balance 3832.469 1549.605 350 - Objective General Appearance: positive: No acute distress, Alert, Other (elderly white male) Eyes Bilateral: positive: PERRL ENT: positive: No signs of dehydration Neck: positive: No JVD. negative: Stiff neck Respiratory: positive: No respiratory distress, Rhonchi Cardiovascular: positive: Regular rate & rhythm, Systolic murmur. negative: Tachycardia, Gallop/S4, Friction rub Abdomen: positive: Non-tender, Nml bowel sounds, No distention Skin: positive: Warm, Dry Extremities: positive: Full ROM, No pedal edema Neurologic/Psychiatric: positive: CN's nml (2-12), Motor nml, Disoriented to person, Disoriented to place, Disoriented to time, Weakness (genralized), Other (ADLs of self feeding,) - Lab Results Fish Bones: 11/25/20 05:15 11/25/20 05:15 Other Labs: Lab Results x24hrs 11/25/20 11/25/20 11/25/20 Range/Units 05:15 05:15 05:15 WBC 14.1 H (4.8-10.8) x10^3/uL RBC 3.27 L (4.70-6.10) 10^6/uL Hgb 10.3 L (14.0-18.0) g/dL Hct 30.7 L (42.0-52.0) % MCV 93.9 (80.0-94.0) fL MCH 31.5 H (27.0-31.0) pg MCHC 33.6 (32.0-36.0) g/dL RDW 13.2 (12.0-15.0) % Plt Count 94 L (130-450) 10^3/uL MPV 10.8 (7.4-11.4) fL Neut # (Auto) Not Reportable Lymph # (Auto) Not Reportable Floyd # (Auto) Not Reportable Eos # (Auto) Not Reportable Baso # (Auto) Not Reportable Absolute Nucleated RBC Not Reportable Total Counted 100 Band Neuts % (Manual) 8 (0 - 10) % Abnorm Lymph % (Manual) 0 % Nucleated RBC % Not Reportable Neutrophils # (Manual) 11.7 H (1.5-6.6) 10^3/uL Lymphocytes # (Manual) 2.1 (1.5-3.5) 10^3/uL Monocytes # (Manual) 0.3 (0.0-1.0) 10^3/uL Eosinophils # (Manual) 0.0 (0-0.7) 10^3/uL Basophils # (Manual) 0.0 (0-0.1) 10^3/uL Differential Comment MANUAL DIFFERENTIAL WBC Morphology NORMAL APPEARANCE (NORMAL) Platelet Estimate DECREASED (<130,000) (NORMAL) Platelet Morphology NORMAL APPEARANCE (NORMAL) RBC Morph Micro Appear NORMAL APPEARANCE (NORMAL) PT 15.2 H (9.9-12.6) secs INR 1.4 H (0.8-1.2) Sodium 142 (135-145) mmol/L Potassium 3.5 (3.5-5.0) mmol/L Chloride 113 H (101-111) mmol/L Carbon Dioxide 21 (21-32) mmol/L Anion Gap 8.0 (6-13) BUN 38 H (6-20) mg/dL Creatinine 1.2 (0.6-1.2) mg/dL Estimated GFR (MDRD) 58 L (>89) Glucose 99 (70-100) mg/dL POC Whole Bld Glucose (70 - 100) mg/dL Calcium 7.7 L (8.5-10.3) mg/dL 11/24/20 11/23/20 11/23/20 Range/Units 11:59 23:47 18:10 WBC (4.8-10.8) x10^3/uL RBC (4.70-6.10) 10^6/uL Hgb (14.0-18.0) g/dL Hct (42.0-52.0) % MCV (80.0-94.0) fL MCH (27.0-31.0) pg MCHC (32.0-36.0) g/dL RDW (12.0-15.0) % Plt Count (130-450) 10^3/uL MPV (7.4-11.4) fL Neut # (Auto) Lymph # (Auto) Floyd # (Auto) Eos # (Auto) Baso # (Auto) Absolute Nucleated RBC Total Counted Band Neuts % (Manual) (0 - 10) % Abnorm Lymph % (Manual) % Nucleated RBC % Neutrophils # (Manual) (1.5-6.6) 10^3/uL Lymphocytes # (Manual) (1.5-3.5) 10^3/uL Monocytes # (Manual) (0.0-1.0) 10^3/uL Eosinophils # (Manual) (0-0.7) 10^3/uL Basophils # (Manual) (0-0.1) 10^3/uL Differential Comment WBC Morphology (NORMAL) Platelet Estimate (NORMAL) Platelet Morphology (NORMAL) RBC Morph Micro Appear (NORMAL) PT (9.9-12.6) secs INR (0.8-1.2) Sodium (135-145) mmol/L Potassium (3.5-5.0) mmol/L Chloride (101-111) mmol/L Carbon Dioxide (21-32) mmol/L Anion Gap (6-13) BUN (6-20) mg/dL Creatinine (0.6-1.2) mg/dL Estimated GFR (MDRD) (>89) Glucose (70-100) mg/dL POC Whole Bld Glucose 106 H 105 H 117 H (70 - 100) mg/dL Calcium (8.5-10.3) mg/dL 11/23/20 11/23/20 Range/Units 11:57 07:16 WBC (4.8-10.8) x10^3/uL RBC (4.70-6.10) 10^6/uL Hgb (14.0-18.0) g/dL Hct (42.0-52.0) % MCV (80.0-94.0) fL MCH (27.0-31.0) pg MCHC (32.0-36.0) g/dL RDW (12.0-15.0) % Plt Count (130-450) 10^3/uL MPV (7.4-11.4) fL Neut # (Auto) Lymph # (Auto) Floyd # (Auto) Eos # (Auto) Baso # (Auto) Absolute Nucleated RBC Total Counted Band Neuts % (Manual) (0 - 10) % Abnorm Lymph % (Manual) % Nucleated RBC % Neutrophils # (Manual) (1.5-6.6) 10^3/uL Lymphocytes # (Manual) (1.5-3.5) 10^3/uL Monocytes # (Manual) (0.0-1.0) 10^3/uL Eosinophils # (Manual) (0-0.7) 10^3/uL Basophils # (Manual) (0-0.1) 10^3/uL Differential Comment WBC Morphology (NORMAL) Platelet Estimate (NORMAL) Platelet Morphology (NORMAL) RBC Morph Micro Appear (NORMAL) PT (9.9-12.6) secs INR (0.8-1.2) Sodium (135-145) mmol/L Potassium (3.5-5.0) mmol/L Chloride (101-111) mmol/L Carbon Dioxide (21-32) mmol/L Anion Gap (6-13) BUN (6-20) mg/dL Creatinine (0.6-1.2) mg/dL Estimated GFR (MDRD) (>89) Glucose (70-100) mg/dL POC Whole Bld Glucose 96 93 (70 - 100) mg/dL Calcium (8.5-10.3) mg/dL ABX Reporting Has patient been on IV antibiotics over the past 48 hours?: Yes Assessment/Plan - Problem List (1) Urinary tract infection due to Proteus Impression: resulting in sepsis with shock that has resolved and with bacteremia. White cell count 16.2 >>21.4>>16.2 today On admission had blood pressure in the 80s systolic and 50s diastolic. He was 119/57 at 4:30 this morning and 141/77 at 8:30 this morning. At home he takes propranolol. He was weaned off levophed by am of 11/24 and out of ICU by afternoon. Plan: Sensitivities have come back. We can de-escalate to ceftriaxone. Repeat blood cultures (2) ERICKA (acute kidney injury) Assessment/Plan: He had no urine output into the Benson bag for a day, per his [facility] staff. It appears to have been due to obstruction and the Benson was changed out here in the ER. The CT abd/pelvis showed no pyelo, hydronephrosis or stones. The BUN/creat has already improved alot since admission from 60/4.2>> 55/2.5>> 49/1.9>>38/1.2 today. Started on oral hydration and diet 11/24 Avoid nephrotoxins. Follow BMP daily. Reduce IVF to 85 cc/hr from 100 cc/hr (3) Chronic indwelling Benson catheter Assessment/Plan: His Benson was "blocked for a day" with no urine output noted at his [facility] satff. The Benson was replaced in the ER yesterday. Bloody urine is becoming clear. Irrigate prn has been ordered here. (4) BPH (benign prostatic hyperplasia) Assessment/Plan: His medication list does not have Flomax. We will start Flomax and finasteride. (5) Dementia Assessment/Plan: He normally was able to walk with a walker, spoke 1-word sentences, ate well, fed himself but with trouble due to essential tremor, and recognized family who were allowed to "door visit" at [facility]. Here, he is able to follow conversation with his eyes, facial features show that he recognizes his , and he was following her commands. PT saw him 11/24 and is following. Yesterday's note: Pt requiring max A x1-2 w/ all transfers during today's session. Pt demonstrating difficulty following verbal cues to sequence stand pivot transfer using FWW. Pt requiring manual assist for walker and hand placement with all transfers. Pt may benefit from continued skilled PT services to address deficits with functional mobility and improve safety. Barriers to progress include decreased cognition, poor insight into deficits, and difficulty with following commands. OOB to chair started yesterday and encouraged again today. (6) Elevated INR Assessment/Plan: His admission INR was 1.6, in a pt not on Coumadin, not in DIC. This was likely from inadequate diet. With treatment of infection and his diet resumed, INR today is 1.2 (7) Essential tremor Assessment/Plan: He was on Propranolol LA for this. The tremor is minimal. We held off on resuming Propranolol, until BP is no longer "soft", since Levophed was just weaned to off. Today BP is starting to rise and there is no rebound tachycardia. Resume Propranolol LA in am. (8) History of low back pain Assessment/Plan: OOB to chair started 11/24 (9) Hypoxia Assessment/Plan: Resolved. The CXR was repeated 11/23 and 11/24, due to cough and hypoxia. They did not show CHF or infiltrates. The supplemental O2 has been weaned to off, he is saturating well on room air, ever since upper airway was suctioned.
[2020-11-25] MEDS: cefTRIAXone 2 GM in SODIUM CHLORIDE 0.9% MINIBAG 100 ML IV SCH (11:33)
[2020-11-25] MEDS: FINASTERIDE 5 MG TABLET PO SCH (14:36)
[2020-11-25] MEDS: TAMSULOSIN 0.4 MG CAPSULE PO SCH (14:36)
[2020-11-26] MEDS: SODIUM CHLORIDE FLUSH 0.9% 10 ML SYRINGE IVP SCH ×3 (00:15→18:18)
[2020-11-26] MEDS: ACETAMINOPHEN 1,000 MG/100 ML 100 ML IV PRN (00:19)
[2020-11-26 04:49] LABS: BASOPHILS # (AUTO) 0.1 10^3/uL (0.0-0.1); BASOPHILS % (AUTO) 0.5 %; EOSINOPHILS # (AUTO) 0.2 10^3/uL (0.0-0.7); EOSINOPHILS % (AUTO) 1.6 %; HCT - HEMATOCRIT 31.4 % (42.0-52.0); HGB - HEMOGLOBIN 10.3 g/dL (14.0-18.0); LYMPHOCYTES # (AUTO) 2.1 10^3/uL (1.5-3.5); LYMPHOCYTES % (AUTO) 19.4 %; MEAN CORPUSCULAR HEMOGLOBIN 30.7 pg (27.0-31.0); MEAN CORPUSCULAR HGB CONC 32.8 g/dL (32.0-36.0); MEAN CORPUSCULAR VOLUME 93.5 fL (80.0-94.0); MEAN PLATELET VOLUME 11.1 fL (7.4-11.4); MONOCYTES # (AUTO) 0.7 10^3/uL (0.0-1.0); MONOCYTES % (AUTO) 5.9 %; NEUTROPHILS # (AUTO) 7.9 10^3/uL (1.5-6.6); NEUTROPHILS % (AUTO) 72.1 %; PLT - PLATELET COUNT 103 10^3/uL (130-450); RED BLOOD COUNT 3.36 10^6/uL (4.70-6.10); RED CELL DISTRIBUTION WIDTH 13.1 % (12.0-15.0)
[2020-11-26 04:54] LABS: CREATININE 0.9 mg/dL (0.6-1.2); POTASSIUM 3.5 mmol/L (3.5-5.0)
[2020-11-26] MEDS: PANTOPRAZOLE 40 MG VIAL IVP SCH (06:36)
[2020-11-26] MEDS: LACTATED RINGERS 1,000 ML IV SCH ×2 (06:37→18:49)
[2020-11-26] MEDS: cefTRIAXone 2 GM in SODIUM CHLORIDE 0.9% MINIBAG 100 ML IV SCH (08:29)
[2020-11-26] MEDS: FINASTERIDE 5 MG TABLET PO SCH (08:32)
[2020-11-26] MEDS: TAMSULOSIN 0.4 MG CAPSULE PO SCH (08:32)
--- NOTE | 2020-11-26 11:25 | PROVIDER PROGRESS NOTE ---
Subjective - Prog Note Date Prog Note Date: 11/26/20 Prog Note Time: 11:23 - Subjective Subjective: he's awake, alert, sitting up but nonverbal. watches me and smiles at times. no distress. Current Medications - Current Medications Current Medications: Active Medications Finasteride (Finasteride 5 Mg Tablet) 5 mg PO DAILY [facility] Last Admin: 11/26/20 08:32 Dose: 5 mg Documented by: Acetaminophen (Ofirmev) 100 mls @ 400 mls/hr IV Q6HR PRN PRN Reason: Pain or Fever > 38C (100.4F) Last Infusion: 11/26/20 00:35 Dose: Infused Documented by: Ceftriaxone Sodium 2 gm/ (Sodium Chloride) 100 mls @ 200 mls/hr IV DAILY [facility] Last Infusion: 11/26/20 09:10 Dose: Infused Documented by: Lactated Ringer's (Lr) 1,000 mls @ 85 mls/hr IV .[id number] [facility] Last Infusion: 11/26/20 09:10 Dose: 85 mls/hr Documented by: Ondansetron HCl (Ondansetron 4 Mg/2 Ml Vial) 4 mg IVP Q6HR PRN PRN Reason: Nausea / Vomiting Pantoprazole Sodium (Pantoprazole 40 Mg Vial) 40 mg IVP QDAC [facility] Last Admin: 11/26/20 06:36 Dose: 40 mg Documented by: Sodium Chloride (Sodium Chloride Flush 0.9% 10 Ml Syringe) 10 ml IVP 0100,0900,1700 [facility] Last Admin: 11/26/20 10:02 Dose: Not Given Documented by: Sodium Chloride (Sodium Chloride Flush 0.9% 10 Ml Syringe) 10 ml IVP PRN PRN PRN Reason: NEEDED PER PROVIDER ORDERS Tamsulosin HCl (Tamsulosin 0.4 Mg Capsule) 0.4 mg PO DAILY [facility] Last Admin: 11/26/20 08:32 Dose: 0.4 mg Documented by: Acetaminophen [Tylenol] 650 mg PO Q6H PRN 11/23/20 Bisacodyl Supp [Dulcolax Supp] 1 supp SC DAILY PRN 11/23/20 Cholecalciferol [Vitamin D3] 1 tab PO DAILY 11/23/20 Loperamide HCl [Imodium A-D] 4 mg PO PRN PRN 11/23/20 Mag Hydrox/Aluminum Hyd/Simeth [Antacid Anti-Gas Liquid] 30 ml PO Q4HR PRN 11/23/20 Magnesium Hydroxide [Milk of Magnesia] 30 ml PO DAILY PRN 11/23/20 Potassium Chloride 10 meq PO DAILY 11/23/20 Propranolol HCl 60 mg PO DAILY 11/23/20 Objective - Vital Signs/Intake & Output Reviewed Vital Signs: Yes Vital Signs: Vital Signs x48h Temp Pulse Resp BP Pulse Ox 11/26/20 08:00 37.4 C 82 23 103/67 94 11/26/20 04:02 36.9 C 75 23 118/75 95 Intake & Output: Intake & Output 11/23/20 11/24/20 11/25/20 11/26/20 23:59 23:59 23:59 23:59 Intake Total 6212.469 3759.605 3302.5 1467.167 Output Total 2380 2210 2400 2225 Balance 3832.469 1549.605 902.5 -757.833 - Objective General Appearance: positive: No acute distress, Alert Eyes Bilateral: positive: PERRL ENT: positive: No signs of dehydration Neck: positive: No JVD. negative: Stiff neck Respiratory: positive: No respiratory distress, Rhonchi (faint and upper lungs). negative: Wheezes, Rales Cardiovascular: positive: Regular rate & rhythm, Systolic murmur. negative: Gallop/S4, Friction rub Abdomen: positive: Non-tender, Nml bowel sounds, No distention Skin: positive: Warm, Dry, Pallor Extremities: positive: Full ROM, No pedal edema Neurologic/Psychiatric: positive: CN's nml (2-12), Motor nml, Disoriented to person, Disoriented to place, Disoriented to time, Slurred/abnml speech (nonverbal) - Lab Results Fish Bones: 11/26/20 04:00 11/26/20 04:00 Other Labs: Lab Results x24hrs 11/26/20 11/26/20 Range/Units 04:00 04:00 WBC 11.0 H (4.8-10.8) x10^3/uL RBC 3.36 L (4.70-6.10) 10^6/uL Hgb 10.3 L (14.0-18.0) g/dL Hct 31.4 L (42.0-52.0) % MCV 93.5 (80.0-94.0) fL MCH 30.7 (27.0-31.0) pg MCHC 32.8 (32.0-36.0) g/dL RDW 13.1 (12.0-15.0) % Plt Count 103 L (130-450) 10^3/uL MPV 11.1 (7.4-11.4) fL Neut # (Auto) 7.9 H (1.5-6.6) 10^3/uL Lymph # (Auto) 2.1 (1.5-3.5) 10^3/uL [place] # (Auto) 0.7 (0.0-1.0) 10^3/uL Eos # (Auto) 0.2 (0.0-0.7) 10^3/uL Baso # (Auto) 0.1 (0.0-0.1) 10^3/uL Absolute Nucleated RBC 0.00 x10^3/uL Nucleated RBC % 0.0 /100WBC Sodium 142 (135-145) mmol/L Potassium 3.5 (3.5-5.0) mmol/L Chloride 111 (101-111) mmol/L Carbon Dioxide 24 (21-32) mmol/L Anion Gap 7.0 (6-13) BUN 23 H (6-20) mg/dL Creatinine 0.9 (0.6-1.2) mg/dL Estimated GFR (MDRD) 81 L (>89) Glucose 97 (70-100) mg/dL Calcium 8.0 L (8.5-10.3) mg/dL ABX Reporting Has patient been on IV antibiotics over the past 48 hours?: Yes Sepsis Event Note (H) - Evaluation Current Stage of Sepsis: Resolved Confirmed Source and Organism (if known) of Sepsis: proteus Assessment/Plan - Problem List (1) Urinary tract infection due to Proteus Impression: resulting in sepsis with shock that has resolved and with bacteremia. White cell count 16.2 >>21.4>>16.2 today On admission had blood pressure in the 80s systolic and 50s diastolic. 118/75 and 103/67 today. At home he takes propranolol and that was given this morning with slight drop in BP from yesterday. He was weaned off levophed by am of 11/24 and out of ICU by afternoon. Repeat blood cultures from 11/25 are neg. Sensitivities have come back. We de-escalated to ceftriaxone 11/25 Can go back to [facility] tomorrow on cefidinir and he will need 7 days total of that. I cannot change today since it is not on our formulary. (2) ERICKA (acute kidney injury) resolved. Assessment/Plan: He had no urine output into the Benson bag for a day, per his [facility] staff. It appears to have been due to obstruction and the Benson was changed out here in the ER. The CT abd/pelvis showed no pyelo, hydronephrosis or stones. The BUN/creat has already improved alot since admission from 60/4.2>> 55/2.5>> 49/1.9>>38/1.223/0.9 today. Started on oral hydration and diet 11/24 Avoid nephrotoxins. Follow BMP daily. DC IVF today and encourage water intake. (3) Chronic indwelling Benson catheter Assessment/Plan: His Benson was "blocked for a day" with no urine output noted at his [facility] satff. The Benson was replaced in the ER. Bloody urine is becoming clear. Irrigate prn has been ordered here. (4) BPH (benign prostatic hyperplasia) Assessment/Plan: His medication list does not have Flomax. I started Flomax and finasteride 11/25. (5) Dementia Assessment/Plan: He normally was able to walk with a walker, spoke 1-word sentences, ate well, fed himself but with trouble due to essential tremor, and recognized family who were allowed to "door visit" at [facility]. Here, he is able to follow conversation with his eyes, facial features show that he recognizes his , and he was following her commands. PT saw him 11/24 and is following. Yesterday's note: Pt requiring max A x1-2 w/ all transfers during today's session. Pt demonstrating difficulty following verbal cues to sequence stand pivot transfer using FWW. Pt requiring manual assist for walker and hand placement with all transfers. Pt may benefit from continued skilled PT services to address deficits with functional mobility and improve safety. Barriers to progress include decreased cognition, poor insight into deficits, and difficulty with following commands. OOB to chair started 11/24 and encouraged Pt. requires min. to mod. a x 1-2 for trasnfers; steps w/walker, mod. a x1 Almost back to baseline. Plan is dc in am (6) Elevated INR Assessment/Plan: His admission INR was 1.6, in a pt not on Coumadin, not in DIC. This was likely from inadequate diet. With treatment of infection and his diet resumed, INR today is 1.2 (7) Essential tremor Assessment/Plan: He was on Propranolol LA for this. The tremor is minimal. We held off on resuming Propranolol, until BP is no longer "soft", since Levophed was just weaned to off. 11/25 BP was starting to rise and there is no rebound tachycardia. Resumed Propranolol LA this am. (8) History of low back pain Assessment/Plan: OOB to chair started 11/24 (9) Hypoxia Assessment/Plan: Resolved. The CXR was repeated 11/23 and 11/24, due to cough and hypoxia. They did not show CHF or infiltrates. The supplemental O2 has been weaned to off, he is saturating well on room air, ever since upper airway was suctioned.
--- NOTE | 2020-11-26 11:59 | PHARMACY PROGRESS NOTE ---
- Best Possible Medication History Admit Date and Time: 11/23/20 0928 Processed by: Pharmacy Medication History completed: Yes Patient Interview: Pt unable to participate Secondary Source(s): Pharmacy records (BASED ON RX FILL LIST IN [employer]) As the person ultimately responsible for medication therapy, providers are able to order a medication from an existing home medication list in [facility] via the "Reconcile Routine" prior to Confirmation of that medication by product support specialist. Such practice is discouraged except when the physician, in their clinical judgment, deems that a medical need exists for a medication without regard to previous use.
[2020-11-26] MEDS: MEROPENEM 1 GM in SODIUM CHLORIDE 0.9% MINIBAG 100 ML IV SCH (20:22)
[2020-11-27] MEDS: SODIUM CHLORIDE FLUSH 0.9% 10 ML SYRINGE IVP SCH ×3 (02:16→18:58)
[2020-11-27] MEDS: MEROPENEM 1 GM in SODIUM CHLORIDE 0.9% MINIBAG 100 ML IV SCH ×3 (04:53→20:57)
[2020-11-27] MEDS: PANTOPRAZOLE 40 MG VIAL IVP SCH (07:00)
[2020-11-27] MEDS: SODIUM CHLORIDE FLUSH 0.9% 10 ML SYRINGE IVP PRN ×3 (07:00→12:23)
--- NOTE | 2020-11-27 07:52 | PROVIDER PROGRESS NOTE ---
Subjective - Prog Note Date Prog Note Date: 11/27/20 Prog Note Time: 07:51 - Subjective Subjective: no new problems overnight. continues to be sleepy but responsive to voice elderly man who is near mute. Will reflexively respond to good morning with the same, or tell his "love you back" when she tells him "I love you." Current Medications - Current Medications Current Medications: Active Medications Finasteride (Finasteride 5 Mg Tablet) 5 mg PO DAILY [facility] Last Admin: 11/26/20 08:32 Dose: 5 mg Documented by: Acetaminophen (Ofirmev) 100 mls @ 400 mls/hr IV Q6HR PRN PRN Reason: Pain or Fever > 38C (100.4F) Last Infusion: 11/26/20 00:35 Dose: Infused Documented by: Lactated Ringer's (Lr) 1,000 mls @ 85 mls/hr IV .[id number] [facility] Last Infusion: 11/27/20 07:10 Dose: 85 mls/hr Documented by: Meropenem 1 gm/ Sodium (Chloride) 100 mls @ 200 mls/hr IV Q8H [facility] Last Infusion: 11/27/20 07:10 Dose: Infused Documented by: Ondansetron HCl (Ondansetron 4 Mg/2 Ml Vial) 4 mg IVP Q6HR PRN PRN Reason: Nausea / Vomiting Pantoprazole Sodium (Pantoprazole 40 Mg Vial) 40 mg IVP QDAC [facility] Last Admin: 11/27/20 07:00 Dose: 40 mg Documented by: Senna (Senna 8.6 Mg Tablet) 8.6 - 17.2 mg PO DAILY [facility] Sodium Chloride (Sodium Chloride Flush 0.9% 10 Ml Syringe) 10 ml IVP 0100,0900,1700 [facility] Last Admin: 11/27/20 04:53 Dose: 10 ml Documented by: Sodium Chloride (Sodium Chloride Flush 0.9% 10 Ml Syringe) 10 ml IVP PRN PRN PRN Reason: NEEDED PER PROVIDER ORDERS Last Admin: 11/27/20 07:00 Dose: 10 ml Documented by: Tamsulosin HCl (Tamsulosin 0.4 Mg Capsule) 0.4 mg PO DAILY [facility] Last Admin: 11/26/20 08:32 Dose: 0.4 mg Documented by: Acetaminophen [Tylenol] 650 mg PO Q6H PRN 03/28/21 Bisacodyl Supp [Dulcolax Supp] 1 supp MT DAILY PRN 11/23/20 Cholecalciferol [Vitamin D3] 1 tab PO DAILY 11/23/20 Loperamide HCl [Imodium A-D] 4 mg PO PRN PRN 11/23/20 Mag Hydrox/Aluminum Hyd/Simeth [Antacid Anti-Gas Liquid] 30 ml PO Q4HR PRN 11/23/20 Magnesium Hydroxide [Milk of Magnesia] 30 ml PO DAILY PRN 11/23/20 Potassium Chloride 10 meq PO DAILY 11/23/20 Propranolol HCl 60 mg PO DAILY 11/23/20 Objective - Vital Signs/Intake & Output Reviewed Vital Signs: Yes Vital Signs: Vital Signs x48h Temp Pulse Resp BP Pulse Ox 11/27/20 05:00 37.4 C 77 18 135/72 H 93 11/27/20 01:00 36.7 C 82 20 145/73 H 95 Intake & Output: Intake & Output 11/24/20 11/25/20 11/26/20 11/27/20 23:59 23:59 23:59 23:59 Intake Total 3759.605 3302.5 2987.417 1255.667 Output Total 2210 2400 4000 Balance 1549.605 902.5 -7922.439 0743.667 - Objective General Appearance: positive: No acute distress, Alert, Other (Sitting up in chair, watching TV. Looks at me when I walk in the room but is silent and nonverbal.) Eyes Bilateral: positive: PERRL, EOMI ENT: positive: No signs of dehydration Neck: positive: No JVD. negative: Stiff neck Respiratory: positive: No respiratory distress, Rhonchi (Faint, right lower lobe). negative: Wheezes, Rales Cardiovascular: positive: Regular rate & rhythm, Systolic murmur. negative: Gal lop/S4, Friction rub Abdomen: positive: Non-tender, No organomegaly, Nml bowel sounds, No distention Skin: positive: Warm, Dry Extremities: positive: Full ROM, No pedal edema Neurologic/Psychiatric: positive: CN's nml (2-12), Disoriented to person, Disoriented to place, Disoriented to time. negative: Motor nml (Stiffness at hips, knees resulting in a moderate assist to get him from laying position to standing position. Requires a lot of cues to get him to's scoot to the edge of the bed and then to put his hands on the walker to then leverage himself out of the bed. Leans too far forward, has to be cued t) - Lab Results Fish Bones: 11/26/20 04:00 11/26/20 04:00 ABX Reporting Has patient been on IV antibiotics over the past 48 hours?: Yes Sepsis Event Note (H) - Evaluation Current Stage of Sepsis: Resolved Assessment/Plan - Problem List (1) Urinary tract infection due to Proteus Impression: Impression: resulting in sepsis with shock that has resolved and with bacteremia. White cell count 16.2 >>21.4>>16.2 today On admission had blood pressure in the 80s systolic and 50s diastolic. 118/75 and 103/67 today. At home he takes propranolol and that was given this morning with slight drop in BP from yesterday. He was weaned off levophed by am of 11/24 and out of ICU by afternoon. Repeat blood cultures from 11/25 are neg. Sensitivities have come back. We de-escalated to ceftriaxone 11/25 It was thought that he was going to go back to his memory care unit after pharmacy stated that we could de-escalate to oral cefdinir. However, I spoke to infectious disease at [facility] 11/26. Dr. Toro. She reviewed the sensitivities of both the ESBL E. coli and the Proteus. She does not recommend oral antibiotics because of these bacteria. She recommends a total of 14 days of ertapenem or meropenem. As such I stopped his ceftriazone yesterday evening and he is back on meropenem. Day #5 abx I discussed the case at length with his 11/26/20. Options: PICC line with 9 more days of ertapenem here if his insurance company will authorize it PICC line with 9 more days of ertapenem at his memory care unit if they would bring the patient back every day to the medical ambulatory clinic PICC line with 9 days of ertapenem at a prison facility that will accept him. The does not want [facility] [place]. She is willing to have him go to [email or web address]. I have called [facility] to place a PICC line today. INR also ordered. Of the 3 options, his is decided that she would like him to go to a prison facility and has chosen [facility]. Discharge planning is in the process of getting authorization from [facility]. Dr. Toro, infectious disease, would like to see this patient in the outpatient setting for follow-up. Since he is going to [facility] will see if we can get that outpatient visit set up (2) ERICKA (acute kidney injury) resolved. Assessment/Plan: He had no urine output into the Benson bag for a day, per his [facility] staff. It appears to have been due to obstruction and the Benson was changed out here in the ER. The CT abd/pelvis showed no pyelo, hydronephrosis or stones. The BUN/creat has already improved alot since admission from 60/4.2>> 55/2.5>> 49/1.9>>38/1.2>>23/0.9 No labs today. Started on oral hydration and diet 11/24 Avoid nephrotoxins. DC IVF today and encourage water intake. I worry a bit since he is still sleepy. But states "he eats everything you put in front of him." BMP in am. (3) Chronic indwelling Benson catheter Assessment/Plan: His Benson was "blocked for a day" with no urine output noted at his [facility] staff. The Benson was replaced in the ER. Bloody urine is becoming clear. Irrigate prn has been ordered here. (4) BPH (benign prostatic hyperplasia) Assessment/Plan: His medication list does not have Flomax. I started Flomax and finasteride 11/25. (5) Dementia Assessment/Plan: He normally was able to walk with a walker, spoke 1-word sentences, ate well, fed himself but with trouble due to essential tremor, and recognized family who were allowed to "door visit" at [facility]. Here, he is able to follow conversation with his eyes, facial features show that he recognizes his , and he was following her commands. PT saw him 11/24 and is following. Yesterday's note: Pt requiring max A x1-2 w/ all transfers during today's session. Pt demonstrating difficulty following verbal cues to sequence stand pivot transfer using FWW. Pt requiring manual assist for walker and hand placement with all transfers. Pt may benefit from continued skilled PT services to address deficits with functional mobility and improve safety. Barriers to progress include decreased cognition, poor insight into deficits, and difficulty with following commands. OOB to chair started 11/24 and encouraged Pt. requires min. to mod. a x 1-2 for trasnfers; steps w/walker, mod. a x1 Almost back to baseline. Yesterday, plan was dc in am until we needed to change his abx treatment. Now will continue PT until he leaves to which ever option dc planning can finagle. He is able to feed himself better today. Resting tremor noted. I thought that I had resumed his propranolol and I had not.Will do so today (6) Elevated INR Assessment/Plan: His admission INR was 1.6, in a pt not on Coumadin, not in DIC. This was likely from inadequate diet. With treatment of infection and his diet resumed, After eating and hydration, repeat INR 1.2 Will repeat again today for PICC (7) Essential tremor Assessment/Plan: He was on Propranolol LA for this. The tremor is minimal. We held off on resuming Propranolol, until BP is no l onger "soft", since Levophed was just weaned to off. 11/25 BP was starting to rise and there is no rebound tachycardia. Resumed Propranolol LA 11/26 am. This was an error. I thought I had. Did not. We will resume it today. Systolic 135-145 this am. No changes. (8) History of low back pain Assessment/Plan: OOB to chair started 11/24 (9) Hypoxia Assessment/Plan: Resolved. The CXR was repeated 11/23 and 11/24, due to cough and hypoxia. They did not show CHF or infiltrates. The supplemental O2 has been weaned to off, he is saturating well on room air, ever since upper airway was suctioned.
[2020-11-27] MEDS: SENNA 8.6 MG TABLET PO SCH (08:25)
[2020-11-27] MEDS: TAMSULOSIN 0.4 MG CAPSULE PO SCH (08:25)
[2020-11-27] MEDS: FINASTERIDE 5 MG TABLET PO SCH (08:25)
[2020-11-27 09:33] LABS: INR 1.2 (0.8-1.2)
[2020-11-27] MEDS ORDERED: ACETAMINOPHEN 500 MG TABLET PO PRN (10:12)
--- NOTE | 2020-11-27 18:17 | ANESTHESIA PROCEDURE NOTE ---
Anesth Central Line Template - Central Line Central Line Preparation: Consent Obtained, Time out completed, Ultrasound used, Sterile prep and drape Central line location: Right Basilic Central line type: PICC Single Lumen Central line catheter tip site resides: Superior vena cava (SVC) Central line aftercare: Secured, Placement confirmed, No pneumothorax, No complications, Bundle checklist complete, Pt tolerated well
--- NOTE | 2020-11-27 18:19 | CONSULTATION NOTE ---
Consultation Report: consulted for PICC line by Dr Jackson. Consent obtained from pt's . 4Fr single lumen PICC line placed in sterile fashion using US. pt tolerated well. See RN notes. CXR ordered for placement confirmation
--- NOTE | 2020-11-27 18:53 | XRAY Report ---
PROCEDURE: Chest for Line Placement INDICATIONS: PICC line placement TECHNIQUE: One view of the chest was acquired. COMPARISON: 11/24/2020. FINDINGS: Surgical changes and devices: Tip of PICC line projects over the mid to distal SVC.. Lungs and pleura: No pleural effusions or pneumothorax. No lung consolidation. Interstitial prominen ce is stable compared to prior exams. Mediastinum: Mediastinal contours appear normal. Heart size is normal. Bones and chest wall: No suspicious bony lesions. Overlying soft tissues appear unremarkable. IMPRESSION: Tip of PICC line projects over the mid SVC. Reviewed by: Lorraine Arechiga MD, PhD on 11/27/2020 6:51 PM PDT Approved by: Lorraine Arechiga MD, PhD on 11/27/2020 6:51 PM PDT Station ID: [id number]
[2020-11-27 20:05] LABS: CORONAVIRUS 229E-RESP PCR NOT DETECTED; CORONAVIRUS HKU1-RESP PCR NOT DETECTED; CORONAVIRUS NL63-RESP PCR NOT DETECTED; CORONAVIRUS OC43-RESP PCR NOT DETECTED; HUMAN METAPNEUMOVIRUS NOT DETECTED; INFLUENZA A- RESP PCR PANEL NOT DETECTED; RHINOVIRUS/ENTEROVIRUS NOT DETECTED; SARS-CoV-2 -RESP PCR PANEL NOT DETECTED
[2020-11-27 20:06] LABS: B. PARAPERTUSSIS- RESP PCR PAN NOT DETECTED; B. PERTUSSIS- RESP PCR PANEL NOT DETECTED; C. PNEUMONIAE- RESP PCR PANEL NOT DETECTED; INFLUENZA B - RESP PCR PANEL NOT DETECTED; M. PNEUMONIAE- RESP PCR PANEL NOT DETECTED; PARAINFLUENZA VIRUS 1 NOT DETECTED; PARAINFLUENZA VIRUS 2 NOT DETECTED; PARAINFLUENZA VIRUS 3 NOT DETECTED; PARAINFLUENZA VIRUS 4 NOT DETECTED; RSV- RESP PCR PANEL NOT DETECTED
[2020-11-28] MEDS: SODIUM CHLORIDE FLUSH 0.9% 10 ML SYRINGE IVP PRN ×3 (00:45→04:40)
[2020-11-28] MEDS: SODIUM CHLORIDE FLUSH 0.9% 10 ML SYRINGE IVP SCH ×2 (00:45→10:05)
[2020-11-28] MEDS: MEROPENEM 1 GM in SODIUM CHLORIDE 0.9% MINIBAG 100 ML IV SCH ×2 (04:00→11:33)
[2020-11-28 08:16] VITALS: BP 125/67
[2020-11-28] MEDS: SENNA 8.6 MG TABLET PO SCH (08:43)
[2020-11-28] MEDS: FINASTERIDE 5 MG TABLET PO SCH (08:44)
[2020-11-28] MEDS: TAMSULOSIN 0.4 MG CAPSULE PO SCH (08:53)
[2020-11-28] MEDS ORDERED: PROPRANOLOL 40 MG TABLET PO SCH (09:00)
--- NOTE | 2020-11-28 09:25 | Discharge Plan ---
"Discharge Plan for SNF / [facility] - Discharge Plan And Transition Orders Problem Reviewed?: Yes Disposition: 03 SNF DC/Xfer Condition: Good Allergies and Adverse Reactions: Allergies Allergy/AdvReac Type Severity Reaction Status Date / Time No Known Drug Allergies Allergy Verified 11/23/20 07:23 Health Concerns: Palomo is a miri gentleman with dementia and lives in a memory care unit. He presents with urinary obstruction from a plugged up Benson. The Benson is a chronic indwelling Benson catheter for benign prostatic hypertrophy. He was lethargic, and found to be in sepsis from the obstruction. Urine and blood cultures grew out E. coli and Proteus. E. coli is ESBL. He is to receive a total of 14 days of antibiotic therapy. He will complete therapy 12/07. Plan of Treatment: 1. Complete therapy for Proteus and ESBL E. coli with ertapenem 1 g once a day 2. Infectious diseases [facility] would like to see him in appointment. Dr. Yanna Toro is the medical cost consultant we used while he was in the hospital. Please call her office and make an appointment for him so he can be seen at least once before he leaves [facility]. 3. He is to return to his memory care unit after therapy. 4. Please have him see his primary care provider, Dr. Roth, in the next 2 to 3 weeks. Care Goals: To complete therapy and return to his home at the memory care unit. Assessment: And has moderate to severe dementia. The care plan, treatment, discussed with his and she agrees. - SNF / [facility] Transition Orders Admit to (Facility): [facility] Discharge Diagnosis: 1. Sepsis with shock, resolved 2. Benign prostatic hypertrophy with lower urinary tract symptoms of obstruction 3. Chronic indwelling Benson catheter that was obstructed on admission 4. ESBL E. coli UTI 5. Proteus mirabilis UTI 6. Proteus mirabilis bacteremia 7. Severe dementia 8. Acute kidney injury present on admission that is resolved 9. Essential tremor 10. History of low back pain 11. Hypoxia resolved 12. Hypertension Medicare Certification Statement: I certify that [facility] care is medically necessary on a continuing basis for any of the conditions for which she/he is receiving care during hospitalization. Notify PCP of admission and forward orders to primary provider for signature. Weight on admission and: Weekly Other Notification Orders: Call PCP immediately if patient develops dyspnea, chest pain/tightness or edema. Additional Bowel Program Orders: If no BM after 2 days, nurse may give M.O.M. 30ml PO PRN and/or ducolax Supp 1 AL and/or RANI 250mg P.O., and/or senna 1-2 tabs PO. On day 3 nurse may give repeat above order until residents constipation is resolved. Annual Influenza Vaccine (between Apr 29 and November 26): Yes Two-step PPD per [facility] [phone] or approved exception documents: Yes Lab Tests or X-ray Orders: CBC and BMP December 02 and December 05 Medication Orders: PLEASE REFER TO THE DISCHARGE MEDICATION LIST. Insulin Orders?: No - Medications New Prescriptions: Ertapenem [INVanz] 1 gm IV Q24H #10 ml - Diet Type: Geriatric Texture: Mech soft Liquids: Thin May have monthly special meal: Yes - Therapies | Activity Therapy: Evaluation | Treat if indicated: PT, OT, Swallowing / ST Rehabilitation Potential: Maximize functional status Activity: Activity as Tolerated Weight Bearing: Full Weight Assistance Devices: Walker Follow Up: 1. Please see his primary care provider, Dr Roth, In the next 3 to 4 weeks. 2. He needs to see infectious disease at [facility], Dr. Yanna Toro, in the next 1 to 2 weeks. She is anticipating your phone call to make an appointment for them."
--- NOTE | 2020-11-28 11:02 | DISCHARGE SUMMARY ---
Discharge Summary Admit Date: 11/23/20 Discharge Date: 11/28/20 Discharging Provider: Leit Jackson MD Primary Care Provider: Cb Roth MD Code Status: Do Not Attempt Resuscitation Condition at Discharge: Good Discharge Disposition: SNF DC/Xfer Discharge Facility Name: [facility] - DIAGNOSES Discharge Diagnoses with Status of Each Condition: 1. Sepsis with shock, resolved 2. Benign prostatic hypertrophy with lower urinary tract symptoms of obstruction 3. Chronic indwelling Benson catheter, obstructed on admission 4. ESBL E. coli UTI 5. Proteus mirabilis UTI 6. Proteus mirabilis bacteremia 7. Severe dementia 8. Acute kidney injury present on admission, resolved 9. Essential tremor 10. History of low back pain 11. Hypoxia, present on admission, resolved 12. Hypertension 13. Generalized weakness at risk for falls - HPI History of Present Illness: This is an 80-year-old white male who lives at a halfway facility called [facility]. He has a chronic indwelling Benson catheter due to benign prostatic hypertrophy. The day before admission he stopped having any urine output. On the day of admission he became altered. He already is a relatively mute gentleman. He will say "good morning" or "I love you back" when addressed by his . Other than that he does not respond verbally. He has a walker, walks with a shuffling gait, is able to feed himself. He presented to the emergency room with septic shock. EMS had his blood pressure in the 60s systolic at the scene with an encephalopathic elderly man. In the emergency room temperature was 38.5, heart rate 103, blood pressure 87/57, respirations 36 and he was 96% saturating on a nonrebreather mask. He was moaning, eyes were closed. He would open his eyes to verbal prompting but nonverbal. He had a tachycardic regular rate and rhythm. Discomfort to suprapubic palpation with distended palpable bladder. Skin was flushed and red. Jones Coma Scale 12. Lactic acid was 4.3. White cell count 16.2. Hemoglobin 13.2. Sodium 145. BUN 60, creatinine 4.2. Troponin 23.7. - CONSULTS | PROCEDURES Procedures: 1. 4 chest x-rays were done during this admission. He does not have pleural effusions or pneumothorax. No lung consolidations. PICC line is in place. 2. Abdomen pelvis CT with mild dependent atelectasis in lung bases. Liver, spleen, gallbladder, pancreas, adrenals, kidneys appear normal without hydronephrosis or nephrolithiasis. Moderate amount of stool in the distal colon. No dilated loops of bowel. No adenopathy. No ventral hernias. Bladder decompressed by Benson. Bilateral fat-containing inguinal hernias are present. Proximal femur hardware is seen. Central compression deformity of L3 with 70% loss of height. - HOSPITAL COURSE Hospital Course: Patient received aggressive fluid resuscitation for sepsis protocol. Benson was changed and he drained quite a bit of urine. >1 liter. He was placed on meropenem. Lactic acid went to 7.2 and he remained hypotensive. Long discussions were held with his and he is a DO NOT INTUBATE DO NOT RESUSCITATE. He did not receive pressors. Blood cultures grew out Proteus, urine cultures grew out Proteus and ESBL E. coli. We initially entertain the idea at the recommendation of pharmacy to change this patient to p.o. meds. However we spoke to [facility] infectious disease, Yanna Toro. Dr. Toro did not recommend p.o. antibiotics and recommended ertapenem once a day for a total of 14 days of antibiotics. The patient gradually recovered. His was able to visit him and he did recognize her and respond to her. He was spontaneously verbalized with her but was mute the rest the time. He was initially not able to feed himself. Nurses had to feed him. By the end of discharge he is feeding himself. He has a baseline resting tremor that makes it difficult for him to do so. His usual home medication of propranolol was resumed. By the time of discharge his BMP was normal. Random glucose 104. White cell count is 11 on November 26. Hemoglobin 10.3. INR is 1.6 on admission and 1.2 by discharge. Covid negative on November 23 and November 27. It was noted that his hemoglobin on admission was 13.2. And with hydration he dropped to 10.3. The only other CBC we have to compare to is in December 14, 2019 hemoglobin was 12.3. So he has dropped his hemoglobin but there is no active GI bleeding that we can see. At discharge the patient is a mute, cooperative elderly gentleman who is 6 foot 1 inches tall and weighs 77 kg. Temperature is 36.9. Heart rate 90. Blood pressure 125/67. Respirations 18. 94% on room air. He is sitting upright in his chair. Neck is supple with shotty adenopathy. No respiratory distress and lungs are clear to auscultation and percussion. PMI is normally placed with a regular rate and rhythm. The abdomen is soft, nondistended, and no suprapubic pain. Benson catheter has been changed out and it is draining clear urine. Extremities have trace edema around the ankles. He performs sit to stand with moderate assist x1-2. Hold onto the walker. He remains standing with minimum assist x1 and needs cues to keep his hips over the base of his support. BELLY PACKER has to change his briefs and perform his post bowel movement cleaning. He needs to be cued to step forward and walk. He can advance with his walker but needs numerous, numerous cues. When he gets out of a chair he needs max assist x2 to help him hold onto his walker. He can perform a step pivot toward the bed and needs to be lowered with a moderate assist x1. Needs to be cued to flex his hip s. Greater than 30 minutes was spent coordinating discharge. - ALLERGIES Allergies/Adverse Reactions: Allergies Allergy/AdvReac Type Severity Reaction Status Date / Time No Known Drug Allergies Allergy Verified 11/23/20 07:23 - MEDICATIONS Home Medications: Ambulatory Orders Medication Instructions Recorded Confirmed Acetaminophen [Tylenol] 650 mg PO Q6H PRN 11/23/20 11/23/20 Bisacodyl Supp [Dulcolax Supp] 1 supp CA DAILY PRN 11/23/20 11/23/20 Cholecalciferol [Vitamin D3] 1 tab PO DAILY 11/23/20 11/23/20 Loperamide HCl [Imodium A-D] 4 mg PO PRN PRN 11/23/20 11/23/20 Mag Hydrox/Aluminum Hyd/Simeth 30 ml PO Q4HR PRN 11/23/20 11/23/20 [Antacid Anti-Gas Liquid] Magnesium Hydroxide [Milk of 30 ml PO DAILY PRN 11/23/20 11/23/20 Magnesia] Potassium Chloride 10 meq PO DAILY 11/23/20 11/25/20 Ertapenem [INVanz] 1 gm IV Q24H #10 ml 11/28/20 Finasteride [Proscar] 5 mg PO DAILY tablet 11/28/20 Propranolol HCl 60 mg PO DAILY #0 11/28/20 11/25/20 Tamsulosin [Flomax] 0.4 mg PO DAILY 11/28/20 - LABS Result Diagrams: 11/26/20 04:00 11/28/20 08:37 - SEPSIS Current Stage of Sepsis: Resolved
== END 2020-11-28 13:15 | DRG 698 ==
LOC: EDUNIT# → ED 07:05 → ICU 09:28 → MS2 11-26 09:30
PROVIDERS: ADMIT Internal Medicine; ATTEND Specialist
DX: A41.9 Sepsis, unspecified organism (principal); T83.098A Other mechanical complication of other urinary catheter, initial encounter; A41.59 Other Gram-negative sepsis; R65.21 Severe sepsis with septic shock; A41.51 Sepsis due to Escherichia coli [E. coli]; N39.0 Urinary tract infection, site not specified; N17.9 Acute kidney failure, unspecified; N13.8 Other obstructive and reflux uropathy; G93.40 Encephalopathy, unspecified; Y84.6 Urinary catheterization as the cause of abnormal reaction of the patient, or of later complication, without mention of misadventure at the time of the procedure; Y92.129 Unspecified place in nursing home as the place of occurrence of the external cause; N40.1 Benign prostatic hyperplasia with lower urinary tract symptoms; I10 Essential (primary) hypertension; F03.90 Unspecified dementia, unspecified severity, without behavioral disturbance, psychotic disturbance, mood disturbance, and anxiety; G25.0 Essential tremor; M47.816 Spondylosis without myelopathy or radiculopathy, lumbar region; R09.02 Hypoxemia; R47.01 Aphasia; Z91.81 History of falling; Z66 Do not resuscitate; Z20.822 Contact with and (suspected) exposure to COVID-19; Z74.09 Other reduced mobility; Z79.899 Other long term (current) drug therapy
CPT/HCPCS: 36415; 51700; 51702; 71045; 74176; 80048; 80053; 81001; 82040; 82803; 83605; 83735; 83880; 84100; 84484; 85025; 85610; 87040; 87077; 87086; 87150; 87181; 87631; 93005; 93306; 96365; 96367; 97163; 97530; 99285; 99291; A9270; C1751; J0131; J2185; J3370; J7120; 0202U; 84132

== ENCOUNTER 2020-11-28 13:11 | Outpatient (CLI) | payer MEDICARE | END 2020-11-28 13:12 | disposition other institution (70) | LOC: EMS 13:11 | PROVIDERS: ATTEND Specialist | DX: A41.9 Sepsis, unspecified organism (principal); N39.0 Urinary tract infection, site not specified; N17.9 Acute kidney failure, unspecified; F03.90 Unspecified dementia, unspecified severity, without behavioral disturbance, psychotic disturbance, mood disturbance, and anxiety | CPT/HCPCS: A0425; A0428 ==

== ENCOUNTER 2021-02-12 11:40 | Outpatient (CLI) | payer MEDICARE | END 2021-02-12 11:41 | disposition critical access hospital (66) | LOC: EMS 11:40 | DX: Z46.6 Encounter for fitting and adjustment of urinary device (principal) | CPT/HCPCS: A0425; A0429 ==

== ENCOUNTER 2021-02-12 11:59 | Emergency (ER) | payer MEDICARE ==
[2021-02-12 12:08] VITALS: BP 125/78
--- NOTE | 2021-02-12 12:31 | ED Physician Documentation ---
History of Present Illness - Stated complaint Stated Complaint: CATH ISSUES - Chief complaint Chief Complaint: General - History obtained from History obtained from: EMS - Additonal information Additional information: Patient sent to the emergency department chief complaint of unable to get Benson catheter in. Patient is nonverbal and has a history of dementia and is unable to provide any information. According to EMS, [facility] staff was trying to change the patient's chronic indwelling Benson and were not able to pass the catheter again. Patient has a history of benign prostatic hypertrophy and is catheter dependent. They do not report any other symptoms that the patient has had. No recent illness. No other complaints at this time. Review of Systems Unable to obtain: Dementia PD PAST MEDICAL HISTORY - Past Medical History Past Medical History: Yes Cardiovascular: None Respiratory: None Neuro: Dementia Endocrine/Autoimmune: None GI: None : Benign prostate hypertrophy HEENT: None Psych: None Musculoskeletal: None Derm: None - Past Surgical History Past Surgical History: No Ortho: Hip replacement - Present Medications Home Medications: Ambulatory Orders Medication Instructions Recorded Confirmed Acetaminophen [Tylenol] 650 mg PO Q6H PRN 11/23/20 11/23/20 Bisacodyl Supp [Dulcolax Supp] 1 supp RI DAILY PRN 11/23/20 11/23/20 Cholecalciferol [Vitamin D3] 1 tab PO DAILY 11/23/20 11/23/20 Loperamide HCl [Imodium A-D] 4 mg PO PRN PRN 11/23/20 11/23/20 Mag Hydrox/Aluminum Hyd/Simeth 30 ml PO Q4HR PRN 11/23/20 11/23/20 [Antacid Anti-Gas Liquid] Magnesium Hydroxide [Milk of 30 ml PO DAILY PRN 11/23/20 11/23/20 Magnesia] Potassium Chloride 10 meq PO DAILY 11/23/20 11/25/20 Ertapenem [INVanz] 1 gm IV Q24H #10 ml 11/28/20 Finasteride [Proscar] 5 mg PO DAILY tablet 11/28/20 Propranolol HCl 60 mg PO DAILY #0 11/28/20 11/25/20 Tamsulosin [Flomax] 0.4 mg PO DAILY 11/28/20 - Allergies Allergies/Adverse Reactions: Allergies Allergy/AdvReac Type Severity Reaction Status Date / Time No Known Drug Allergies Allergy Verified 02/12/21 12:09 - Social History Does the pt smoke?: No Smoking Status: Never smoker Does the pt drink ETOH?: No Does the pt have substance abuse?: No - Immunizations Immunizations are current?: Yes - POLST Patient has POLST: No PD ED PE NORMAL - Vitals Vital signs reviewed: Yes - General General: No acute distress, Well developed/nourished, Other (Alert, no distress.) - HEENT HEENT: Atraumatic, PERRL, EOMI, Moist mucous membranes - Neck Neck: Supple, no meningeal sign - Cardiac Cardiac: RRR, No murmur - Respiratory Respiratory: No respiratory distress, Clear bilaterally - Abdomen Abdomen: Soft, Non tender, Non distended - Derm Derm: Normal color, Warm and dry, No rash - Extremities Extremities: No deformity - Neuro Neuro: Other (Alert, grossly intact.) - Psych Psych: Normal mood, Normal affect Results - Vitals Vitals: Vital Signs - 24 hr 06/17/ 12:02 Temperature 36.3 C L Heart Rate 76 Respiratory 18 Rate Blood Pressure 125/78 O2 Saturation 98 Oxygen O2 Source Room air PD MEDICAL DECISION MAKING - ED course Complexity details: considered differential ED course: Benson catheter was replaced by nursing staff, using a coud cath. Patient had no symptoms of a urinary tract infection and I felt he was stable for discharge home. Departure - Departure Disposition: 01 Home, Self Care Clinical Impression: Encounter for Benson catheter replacement, Urinary retention Condition: Stable Instructions: ED Catheter Care Benson
== END 2021-02-12 14:09 | disposition home or self-care (01) ==
LOC: EDUNIT# → ED 11:59
DX: Z46.6 Encounter for fitting and adjustment of urinary device (principal); N40.1 Benign prostatic hyperplasia with lower urinary tract symptoms; R33.9 Retention of urine, unspecified; F03.90 Unspecified dementia, unspecified severity, without behavioral disturbance, psychotic disturbance, mood disturbance, and anxiety
CPT/HCPCS: 99281

== ENCOUNTER 2021-02-12 13:54 | Outpatient (CLI) | payer MEDICARE | END 2021-02-12 13:55 | disposition home or self-care (01) | LOC: EMS 13:54 | PROVIDERS: ATTEND Emergency Medicine | DX: Z46.6 Encounter for fitting and adjustment of urinary device (principal); F03.90 Unspecified dementia, unspecified severity, without behavioral disturbance, psychotic disturbance, mood disturbance, and anxiety; R41.0 Disorientation, unspecified | CPT/HCPCS: A0425; A0428 ==

== ENCOUNTER 2021-03-22 10:39 | Outpatient (CLI) | payer MEDICARE | END 2021-03-22 10:40 | disposition critical access hospital (66) | LOC: EMS 10:39 | DX: K92.0 Hematemesis (principal) | CPT/HCPCS: A0425; A0427 ==

== ENCOUNTER 2021-03-22 10:56 | Emergency (ER) | payer MEDICARE ==
[2021-03-22 11:13] VITALS: BP 84/55
[2021-03-22] MEDS ORDERED: ATROPINE 1% OPHTH DROPS 2 ML SL PRN ×2 (11:13→11:45)
[2021-03-22] MEDS ORDERED: MORPHINE 10 MG/ML VIAL IM STA (11:13)
--- NOTE | 2021-03-22 11:29 | ED Physician Documentation ---
History of Present Illness - Stated complaint Stated Complaint: VOMITING - Chief complaint Chief Complaint: Abd Pain - History obtained from History obtained from: Patient, Family - History of Present Illness Timing: Unknown Pain level max: 0 Pain level now: 0 - Additonal information Additional information: Patient has a history of dementia, kidney failure, recent treatment for sepsis. Patient was hoping to be placed on hospice on Tuesday but they were unable to have a referral placed. Today the patient has had vomiting and decreased responsiveness. Sent in for pain and nausea control. Family does not want oxygen, IV fluids or any other treatments. Review of Systems Unable to obtain: Dementia Constitutional: denies: Fever GI: reports: Vomiting, Hematemesis PD PAST MEDICAL HISTORY - Past Medical History Cardiovascular: None Respiratory: None Neuro: Dementia Endocrine/Autoimmune: None GI: None : Benign prostate hypertrophy HEENT: None Psych: None Musculoskeletal: None Derm: None - Past Surgical History Past Surgical History: No Ortho: Hip replacement - Present Medications Home Medications: Ambulatory Orders Medication Instructions Recorded Confirmed Acetaminophen [Tylenol] 650 mg PO Q6H PRN 11/23/20 11/23/20 Bisacodyl Supp [Dulcolax Supp] 1 supp IN DAILY PRN 11/23/20 11/23/20 Cholecalciferol [Vitamin D3] 1 tab PO DAILY 11/23/20 11/23/20 Loperamide HCl [Imodium A-D] 4 mg PO PRN PRN 11/23/20 11/23/20 Mag Hydrox/Aluminum Hyd/Simeth 30 ml PO Q4HR PRN 11/23/20 11/23/20 [Antacid Anti-Gas Liquid] Magnesium Hydroxide [Milk of 30 ml PO DAILY PRN 11/23/20 11/23/20 Magnesia] Potassium Chloride 10 meq PO DAILY 11/23/20 11/25/20 Ertapenem [INVanz] 1 gm IV Q24H #10 ml 11/28/20 Finasteride [Proscar] 5 mg PO DAILY tablet 11/28/20 Propranolol HCl 60 mg PO DAILY #0 11/28/20 11/25/20 Tamsulosin [Flomax] 0.4 mg PO DAILY 11/28/20 - Allergies Allergies/Adverse Reactions: Allergies Allergy/AdvReac Type Severity Reaction Status Date / Time No Known Drug Allergies Allergy Verified 03/22/21 11:13 - Social History Does the pt smoke?: No Smoking Status: Never smoker Does the pt drink ETOH?: No Does the pt have substance abuse?: No - Immunizations Immunizations are current?: Yes - POLST Patient has POLST: No PD ED PE NORMAL - Vitals Vital signs reviewed: Yes - General General: Well developed/nourished, Other (Drowsy, not arousable. Nonverbal) - HEENT HEENT: Moist mucous membranes - Neck Neck: Supple, no meningeal sign - Cardiac Cardiac: Other (Tachycardia) - Respiratory Respiratory: No respiratory distress, Other (Rhonchi bilaterally) - Abdomen Abdomen: Soft, Non tender, Non distended - Derm Derm: Warm and dry, No rash - Extremities Extremities: No edema - Neuro Neuro: Other (Drowsy, arousable) Results - Vitals Vitals: Vital Signs - 24 hr 03/22/21 11:10 Temperature 36.5 C Heart Rate 127 H Respiratory 44 H Rate Blood Pressure 84/55 L O2 Saturation 88 L Oxygen O2 Source Non-rebreather mask - Labs Labs: Laboratory Tests 03/22/21 11:45 Nasal Adenovirus (PCR) NOT DETECTED Nasal B. parapertussis DNA (PCR) NOT DETECTED Nasal Coronavir 229E PCR NOT DETECTED Nasal Coronavir HKU1 PCR NOT DETECTED Nasal Coronavir NL63 PCR NOT DETECTED Nasal Coronavir OC43 PCR NOT DETECTED Nasal Enterovir/Rhinovir PCR NOT DETECTED Nasal Influenza B PCR NOT DETECTED Nasal Influenza A PCR NOT DETECTED Nasal Parainfluen 1 PCR NOT DETECTED Nasal Parainfluen 2 PCR NOT DETECTED Nasal Parainfluen 3 PCR NOT DETECTED Nasal Parainfluen 4 PCR NOT DETECTED Nasal RSV (PCR) NOT DETECTED Nasal B.pertussis DNA PCR NOT DETECTED Nasal C.pneumoniae (PCR) NOT DETECTED Jimmy Human Metapneumo PCR NOT DETECTED Nasal M.pneumoniae (PCR) NOT DETECTED Nasal SARS-CoV-2 (PCR) NOT DETECTED PD MEDICAL DECISION MAKING - ED course Complexity details: considered differential, d/w family ED course: 81-year-old male appears critically ill. Unable to give any history. Family states that they wanted him to be placed on hospice last week, but this was unavailable. Has continued to deteriorate and is not taking anything by mouth. They want him to be comfortable. No IV fluids. No IVs. They would like morphine and atropine for secretions. This was given to the patient we discussed observation in the hospital with Dr. Jackson, hospitalist who had accepted the patient. Prior to transfer to the floor, the patient did in the emergency department. Time of was 1209. This document was made in part using voice recognition software. While efforts are made to proofread this document, sound alike and grammatical errors may occur. Departure - Departure Disposition: 20 Clinical Impression: Hypoxia, Cardiac Hematemesis Qualifiers: Nausea presence: unspecified Qualified Code(s): K92.0 - Hematemesis Dementia Qualifiers: Dementia type: unspecified type Dementia behavioral disturbance: without behavioral disturbance Qualified Code(s): F03.90 - Unspecified dementia without behavioral disturbance
[2021-03-22] MEDS ORDERED: GLYCOPYRROLATE 1 MG/5 ML VIAL SUBQ PRN (11:45)
[2021-03-22] MEDS ORDERED: LORazepam 1 MG TABLET PO PRN (11:45)
[2021-03-22] MEDS ORDERED: MORPHINE SOL 10 MG/0.5 ML ORAL SYRINGE PO PRN (11:45)
[2021-03-22] MEDS ORDERED: ACETAMINOPHEN 650 MG SUPP PR PRN (11:45)
[2021-03-22] MEDS ORDERED: MORPHINE 2 MG/ML CARPUJECT IM STA (12:06)
[2021-03-22 12:46] LABS: B. PARAPERTUSSIS- RESP PCR PAN NOT DETECTED; B. PERTUSSIS- RESP PCR PANEL NOT DETECTED; C. PNEUMONIAE- RESP PCR PANEL NOT DETECTED; CORONAVIRUS 229E-RESP PCR NOT DETECTED; CORONAVIRUS HKU1-RESP PCR NOT DETECTED; CORONAVIRUS NL63-RESP PCR NOT DETECTED; CORONAVIRUS OC43-RESP PCR NOT DETECTED; HUMAN METAPNEUMOVIRUS NOT DETECTED; INFLUENZA A- RESP PCR PANEL NOT DETECTED; INFLUENZA B - RESP PCR PANEL NOT DETECTED; M. PNEUMONIAE- RESP PCR PANEL NOT DETECTED; PARAINFLUENZA VIRUS 1 NOT DETECTED; PARAINFLUENZA VIRUS 2 NOT DETECTED; PARAINFLUENZA VIRUS 3 NOT DETECTED; PARAINFLUENZA VIRUS 4 NOT DETECTED; RHINOVIRUS/ENTEROVIRUS NOT DETECTED; RSV- RESP PCR PANEL NOT DETECTED; SARS-CoV-2 -RESP PCR PANEL NOT DETECTED
== END 2021-03-22 19:15 | disposition expired ==
LOC: EDUNIT# → ED 10:56
DX: R09.02 Hypoxemia (principal); I46.9 Cardiac arrest, cause unspecified; Z20.822 Contact with and (suspected) exposure to COVID-19
CPT/HCPCS: 0202U; 96372; 99283; 99285